=== PATIENT | female | born 1945 | race Caucasian/White ===

== ENCOUNTER 2022-05-28 13:21 | Outpatient (CLI) | payer MEDICARE, SELFPAY ==
--- OUTSIDE RECORDS SUMMARY | 2022-05-28 08:38 | XMS_ITS | Encounter Summary ---
:1945 Author Organization [place] Address [address] [place] [address] Care Team Providers Name Role Phone Amari Torres MD Unavailable [phone] Amari Torres MD Primary Care Provider [phone] Reason for Referral Diagnostic Imaging Mammo (Routine) - Pending Review Specialty Diagnoses / Procedures Referred By Contact Refer red To Contact Diagnoses Visit for screening mammogram Amari Torres, Procedures MA Screen Bilateral w/Luis [facility] [address] [place] [address] Fax: Referral ID Status Reason Start Date Expiration Date Visits V isits Requested Authorized [id number] Pending 04/25/2022 04/25/2023 1 1 Review Reason for Visit Diagnostic Imaging Mammo (Routine) - Pending Review Specialty Diagnoses / Procedures Referred By Contact Refer hue To Contact Diagnoses Visit for screening mammogram Amari Torres Procedures MA Screen Bilateral w/Luis [facility]ASCENC[facility] ENTER [address] [place] [address] Fax: Referral ID Status Reason Start Date Expiration Date Visits V isits Requested Authorized [id number] Pending 04/25/2022 04/25/2023 1 1 Review Encounter Details Date Type Department Care Team Description 05/15/2022 Hospital Encounter [facility] Amari Torres Visit for screening [facility] [address], [address] [place] [address] [id number] Social History Tobacco Use Types Packs/Day Years Used Date Smoking Tobacco: Never Assessed Sex Assigned at Date Recorded Female 04/25/2022 3:34 PM CDT COVID-19 Exposure Response Date Recorded In the last 10 days, have you been in contact with No / Unsu re 05/15/2022 11:30 AM CDT someone who was confirmed or suspected to have Coronavirus/COVID-19? documented as of this encounter Plan of Treatment Not on filedocumented as of this encounter Procedures Procedure Name Priority Date/Time Associated Diagnosis Comme nts MA SCREENING Routine 05/15/2022 11:57 AM Visit for screening R esults for this BILATERAL W/ LUIS CDT mammogram procedure are in the results section. documented in this encounter Results MA Screen Bilateral w/Luis (05/15/2022 11:57 AM CDT) Anatomical Region Laterality Modality Breast Bilateral Mammography Specimen (Source) Anatomical Location Collection Method / Collectio n Time Received Time / Laterality Volume Impressions 05/16/2022 8:39 AM CDT IMPRESSION: ACR BI-RADS Category 1: Negative RECOMMENDED FOLLOW-UP: Annual routine sc reening mammogram The results and recommendations of this examination will be communicated to the patient. William Guerrero Narrative 05/16/2022 8:39 AM CDT BILATERAL FULL FIELD DIGITAL SCREENING MAMMOGRAM WITH TOMOSYNTHESIS Performed on: 05/15/22 Compared to: 05/08/2021, 04/12/2020, , and 03/24/2018 Technique: ??This study was evaluated wi th the assistance of Computer-Aided Detection. ??Breast Tomosynthesis was us ed in interpretation. Findings: The breasts have scattered are as of fibroglandular density. ?? There is no radiographic evidence of mal ignancy. Amari Torres MD IMG MAMMOGRAPHY ORDERABLES documented in this encounter Visit Diagnoses Diagnosis Visit for screening mammogram Other screening mammogram documented in this encounter Care Teams Sound Technician Supervisor Relationship Specialty Start Date End Date Amari Torres MD PCP - General Emergency Medicine 04/17/21 [facility] [address] [place] [address] Amari Torres MD MD Internal Medicine 01/12/15 [facility] [address] [place] [address] documented as of this encounter
--- OUTSIDE RECORDS SUMMARY | 2022-05-28 08:38 | XMS_ITS | Encounter Summary ---
:1945 Author Organization [place] Address [address] [place] [address] Care Team Providers Name Role Phone Amari Torres MD Unavailable [phone] Amari Torres MD Primary Care Provider [phone] Encounter Details Date Type Department Care Team Description 05/15/2022 Travel Social History Tobacco Use Types Packs/Day Years [...] Not on filedocumented as of this encounter Visit Diagnoses Not on filedocumented in this encounter Care Teams Slab Lifting Engineer Relationship Specialty Start Date End Date Amari Torres MD PCP - General Emergency Medicine 04/17/21 [facility] [address] [place] [address] Amari Torres MD MD Internal Medicine 01/12/15 [facility] [address] [place] [address] documented as of this encounter
--- OUTSIDE RECORDS SUMMARY | 2022-05-28 08:38 | XMS_ITS | Encounter Summary ---
:1945 Author Organization [place] Address [address] [place] [address] Care Team Providers Name Role Phone Amari Torres MD Unavailable [phone] Amari Torres MD Primary Care Provider [phone] Encounter Details Date Type Department Care Team Description 05/08/2022 Travel Social History Tobacco Use Types Packs/Day Years Used Date Smoking Tobacco: Never Assessed Sex Assigned at Date Recorded Female 04/25/2022 3:34 PM CDT documented as of this encounter Plan of Treatment Not on filedocumented as of this encounter Visit Diagnoses Not on filedocumented in this encounter Care Teams Professional System Administrator Relationship Specialty Start Date End Date Amari Torres MD PCP - General Emergency Medicine 04/17/21 [facility] [address] [place] [address] Amari Torres MD MD Internal Medicine 01/12/15 [facility] [address] [place] [address] documented as of this encounter
--- OUTSIDE RECORDS SUMMARY | 2022-05-28 08:38 | XMS_ITS | Clinical Summary ---
:1945 Author Organization [facility] Address [place] [address] Care Team Providers Name Role Phone Amari Torres MD Primary Care Provider Allergies Active Allergy Reactions Severity Noted Date Comments Cephalexin Rash Medium 01/10/2022 Medications No known medications Active Problems Not on file Social History Tobacco Use Types Packs/Day Years Used Date Never Assessed Sex Assigned at Date Recorded Not on file Last Filed Vital Signs Vital Sign Reading Time Taken Comments Blood Pressure 104/64 01/10/2022 10:56 AM CDT Pulse 86 01/10/2022 10:56 AM CDT Temperature - - Respiratory Rate - - Oxygen Saturation 95% 01/10/2022 10:56 AM CDT Inhaled Oxygen Concentration - - Weight 70.8 kg (156 lb) 01/10/2022 10:56 AM CDT Height - - Body Mass Index - - Plan of Treatment Health Maintenance Due Date Last Done Comments Tdap 1957 Depression screening for age 12+ 1958 BMI (ht and wt on same day) for age 18+ 02/22/1964 Hepatitis C screening for age 18-79 02/22/1964 Tetanus booster 1966 Zoster (shingles) series for age 50+ (1 of 02/22/1996 2) DEXA/DXA scan for age 65+ 2011 Medicare Wellness for age 65+ 2011 Pneumococcal series for age 65+ (1 - PCV) 2011 COVID-19 vaccine series (3 - Booster for 12/30/2021 022, 04/07/2021 Pfizer series) Influenza for age 65+ 03/15/2022 Results Not on filefrom Last 3 Months Insurance Payer Benefit Plan / Subscriber ID Effective Dates Phone Addre ss Type Group [employer] [place] [employer] MEDICARE [id number] 2019-Present [address] [place] [address] Care Teams Doctor Osteopathic Relationship Specialty Start Date End Date Amari Torres MD PCP - General Internal Medicine 01/10/221999 [place] [address]
--- OUTSIDE RECORDS SUMMARY | 2022-05-28 08:38 | XMS_ITS | Encounter Summary ---
:1945 Author Organization [place] Address [address] [place] [address] Care Team Providers Name Role Phone Amari Torres MD Unavailable [phone] Amari Torres MD Primary Care Provider Reason for Referral Diagnostic Imaging Mammo (Routine) - Closed Specialty Diagnoses / Procedures Referred By Contact Refer red To Contact Diagnoses Visit for screening mammogram Amari Torres Procedures MA Screen Bilateral mitzi/Luis [facility] Ernesto ENTER [address] [place] [address] Fax: Referral ID Status Reason Start Date Expiration Date Visits Requ ested Visits Authorized [id number] Closed 04/06/2021 04/06/2022 1 1 Reason for Visit Diagnostic Imaging Mammo (Routine) - Closed Specialty Diagnoses / Procedures Referred By Contact Refer hue To Contact Diagnoses Visit for screening mammogram Amari Torres Procedures MA Screen Bilateral w/Luis [facility] C ENTER [address] [place] [address] Fax: Referral ID Status Reason Start Date Expiration Date Visits Requ ested Visits Authorized [id number] Closed 04/06/2021 04/06/2022 1 1 Encounter Details Date Type Department Care Team Description 05/08/2021 Hospital Encounter [facility] Amari Torres Visit for screening [facility] [address] [place] [address], [address] [place] [address] [phone] Social History Tobacco Use Types Packs/Day Years Used Date Smoking Tobacco: Never Assessed Sex Assigned at Date Recorded Female 04/25/2022 3:34 PM CDT COVID-19 Exposure Response Date Recorded In the last month, have you been in contact with No / Unsure 05/08/2021 10:17 AM CDT someone who was confirmed or suspected to have Coronavirus / COVID-19? documented as of this encounter Plan of Treatment Not on filedocumented as of this encounter Procedures Procedure Name Priority Date/Time Associated Diagnosis Comme nts MA SCREENING Routine 05/08/2021 10:34 AM Visit for screening R esults for this BILATERAL W/ LUIS CDT mammogram procedure are in the results section. documented in this encounter Results MA Screen Bilateral w/Luis (05/08/2021 10:34 AM CDT) Anatomical Region Laterality Modality Breast Bilateral Mammography Specimen (Source) Anatomical Location Collection Method / Collectio n Time Received Time / Laterality Volume Narrative 05/08/2021 11:34 AM CDT BILATERAL FULL FIELD DIGITAL SCREENING MAMMOGRAM WITH TOMOSYNTHESIS Performed on: 05/08/21 Compared to: 04/12/2020, 04/03/2019, 04/2018, and 03/13/2017 Technique: ??This study was evaluated wi th the assistance of Computer-Aided Detection. ??Breast Tomosynthesis was us ed in interpretation. Findings: The breasts have scattered are as of fibroglandular density. ?? There is no radiographic evidence of mal ignancy. IMPRESSION: ACR BI-RADS Category 1: Nega tive RECOMMENDED FOLLOW-UP: Annual routine sc reening mammogram The results and recommendations of this examination will be communicated to the patient. Amari Torres MD IMG MAMMOGRAPHY ORDERABLES documented in this encounter Visit Diagnoses Diagnosis Visit for screening mammogram Other screening mammogram documented in this encounter Care Teams Supervisory Civil Engineer Relationship Specialty Start Date End Date Amari Torres MD PCP - General Emergency Medicine 04/17/21 [facility] [address] [place] [address] Amari Torres MD MD Internal Medicine 01/12/15 [facility] [address] [place] [address] documented as of this encounter
--- OUTSIDE RECORDS SUMMARY | 2022-05-28 08:38 | XMS_ITS | Encounter Summary ---
:1945 Author Organization [place] Address [address] [place] [address] Care Team Providers Name Role Phone Amari Torres MD Unavailable [phone] Amari Torres MD Primary Care Provider [phone] Encounter Details Date Type Department Care Team Description 05/13/2022 Travel Social History Tobacco Use Types Packs/Day Years Used Date Smoking Tobacco: Never Assessed Sex Assigned at Date Recorded Female 04/25/2022 3:34 PM CDT COVID-19 Exposure Response Date Recorded In the last 10 days, have you been in contact with No / Unsu re 05/13/2022 7:51 PM CDT someone who was confirmed or suspected to have Coronavirus/COVID-19? documented as of this encounter Plan of Treatment Not on filedocumented as of this encounter Visit Diagnoses Not on filedocumented in this encounter Care Teams Civil Drafting Technician Relationship Specialty Start Date End Date Amari Torres MD PCP - General Emergency Medicine 04/17/21 [facility] [address] [place] [address] Amari Torres MD MD Internal Medicine 01/12/15 [facility] [address] [place] [address] documented as of this encounter
--- OUTSIDE RECORDS SUMMARY | 2022-05-28 08:38 | XMS_ITS | Encounter Summary ---
:1945 Author Organization [place] Address [address] [place] [address] Care Team Providers Name Role Phone Amari Torres MD Unavailable [phone] Ref-Primary, Physician Primary Care Provider [phone] Encounter Details Date Type Department Care Team Description 04/12/2020 Travel Social History Tobacco Use Types Packs/Day Years Used Date Smoking Tobacco: Never Assessed Sex Assigned at Date Recorded Female 04/25/2022 3:34 PM CDT COVID-19 Exposure Response Date Recorded In the last month, have you been in contact with No / Unsure 04/12/2020 12:50 PM CDT someone who was confirmed or suspected to have Coronavirus / COVID-19? documented as of this encounter Plan of Treatment Not on filedocumented as of this encounter Visit Diagnoses Not on filedocumented in this encounter Care Teams Patient Observer Relationship Specialty Start Date End Date No Ref-Primary, Physician PCP - General 03/31/20 04/16/21 Amari Torres MD MD Internal Medicine 01/12/15 [facility] [address] [place] [address] documented as of this encounter
--- OUTSIDE RECORDS SUMMARY | 2022-05-28 08:38 | XMS_ITS | Encounter Summary ---
:1945 Author Organization [place] Address [address] [place] [address] Care Team Providers Name Role Phone Amari Torres MD Unavailable [phone] Amari Torres MD Primary Care Provider [phone] Encounter Details Date Type Department Care Team Description 05/08/2021 Travel Social History Tobacco Use Types Packs/Day [...] on filedocumented in this encounter Care Teams University Intern Relationship Specialty Start Date End Date Amari Torres MD PCP - General Emergency Medicine 04/17/21 [facility] [address] [place] [address] Amari Torres MD MD Internal Medicine 01/12/15 [facility] [address] [place] [address] documented as of this encounter
--- OUTSIDE RECORDS SUMMARY | 2022-05-28 08:38 | XMS_ITS | Clinical Summary ---
:1945 Author Organization [place] Address [address] [place] [address] Care Team Providers Name Role Phone Amari Torres MD Unavailable [phone] Amari Torres MD Primary Care Provider [phone] Encounters Date Type Specialty Care Team Description 05/15/2022 Hospital Encounter Radiology. Amari Torres Visi t for screening MD [facility] 05/15/2022 Travel 05/13/2022 Travel 05/08/2022 Travel from Last 3 Months Social History Tobacco Use Types Packs/Day Years Used Date Smoking Tobacco: Never Assessed Sex Assigned at Date Recorded Female 04/25/2022 3:34 PM CDT COVID-19 Exposure Response Date Recorded In the last 10 days, have you been in contact with No / Unsu re 05/15/2022 11:30 AM CDT someone who was confirmed or suspected to have Coronavirus/COVID-19? Plan of Treatment Health Maintenance Due Date Last Done Comments ADVANCE CARE PLANNING 1945 ANNUAL REVIEW OF HM ORDERS 1945 DEXA 1945 HEPATITIS B IMMUNIZATION 1945 (1 of 3 - 3-dose series) HEPATITIS C SCREENING 02/22/1964 LIPID 1991 FALL RISK ASSESSMENT 2011 MEDICARE ANNUAL WELLNESS 2011 VISIT Pneumococcal Vaccine: 65+ 02/15/2015 02/15/2014 Years (2 - PCV) PHQ-2 (once per calendar 07/15/2021 year) DTAP/TDAP/TD IMMUNIZATION 02/16/2024 02/15/2014 (2 - Td or Tdap) ZOSTER IMMUNIZATION Completed 10/19/2021, 04/29/2021 COVID-19 Vaccine Completed 03/30/2022, 11/04/2021, 04/07/2021 INFLUENZA VACCINE Completed 03/30/2022, 04/15/2021, 04/19/2020, Additional history exists MAMMO SCREENING Discontinued 05/15/2022, 05/08/2021, 04/12/2020, Additional history exists IPV IMMUNIZATION Aged Out No longer eligi ble based on patient 's age to complete this topic MENINGITIS IMMUNIZATION Aged Out No longe r eligible based on patient 's age to complete this topic Procedures Procedure Name Priority Date/Time Associated Diagnosis Comme nts MA SCREENING Routine 05/15/2022 11:57 AM Visit for screening R esults for this BILATERAL W/ LUIS CDT mammogram procedure are in the results section. from Last 3 Months Results MA Screen Bilateral w/Luis (05/15/2022 11:57 [...] ignancy. Amari Torres MD IMG MAMMOGRAPHY ORDERABLES from Last 3 Months Insurance Payer Benefit Plan / Subscriber ID Effective Dates Phone Addre ss Type Group [facility] [id number] 2019-Present [phone] [address] [place] [address] Care Teams Branch Examiner Relationship Specialty Start Date End Date Amari Torres MD PCP - General Emergency Medicine 04/17/21 [facility] [address] [place] [address] Amari Torres MD MD Internal Medicine 01/12/15 [facility] [address] [place] [address]
--- OUTSIDE RECORDS SUMMARY | 2022-05-28 08:38 | XMS_ITS | Encounter Summary ---
:1945 Author Organization [place] Address [address] [place] [address]. [place] [address] Care Team Providers Name Role Phone Faisal Morales MD Primary Care Provider Amari Torres MD Unavailable [phone] Reason for Referral Diagnostic Imaging Mammo (Routine) - Closed Specialty Diagnoses / Procedures Referred By Contact Refer red To Contact Radiology. Diagnoses Other screening mammogram Faisal Morales MD Breast Imaging Procedures MA Screen Bilateral w/Luis [facility] [address] [place] [address] [facility] [place] [address] [place] [address] Referral ID Status Reason Start Date Expiration Date Visits Requ ested Visits Authorized [id number] Closed 03/19/2019 03/18/2020 1 1 Reason for Visit Diagnostic Imaging Mammo (Routine) - Closed Specialty Diagnoses / Procedures Referred By Contact Refer red To Contact Radiology. Diagnoses Other screening mammogram Faisal Morales MD Breast Imaging Procedures MA Screen Bilateral w/Luis [facility] [address] [id number] [facility], [address] [place] [address] [place] [address] Referral ID Status Reason Start Date Expiration Date Visits Requ ested Visits Authorized [id number] Closed 03/19/2019 03/18/2020 1 1 Encounter Details Date Type Department Care Team Description 04/03/2019 Hospital Encounter Faisal Sahni Ot her screening [facility] [address] [facility], [address] [place] [address] [address] [place] [address] Social History Tobacco Use Types Packs/Day Years Used Date Smoking Tobacco: Never Assessed Sex Assigned at Date Recorded Female 04/25/2022 3:34 PM CDT documented as of this encounter Plan of Treatment Not on filedocumented as of this encounter Procedures Procedure Name Priority Date/Time Associated Diagnosis Comme nts MA SCREENING Routine 04/03/2019 10:28 AM Other screening Resul ts for this BILATERAL W/ LUIS CDT mammogram procedure are in the results section. documented in this encounter Results MA Screen Bilateral w/Luis (04/03/2019 10:28 AM CDT) Anatomical Region Laterality Modality Breast Bilateral Mammography Specimen (Source) Anatomical Location Collection Method / Collectio n Time Received Time / Laterality Volume Impressions 04/03/2019 10:31 AM CDT IMPRESSION: BI-RADS CATEGORY: 1 - Negative. RECOMMENDED FOLLOW-UP: Annual Mammograph y. Recommend routine annual screening mammo graphy. Exam results letter mailed to patient. MATTIE KRAMER MD Narrative 04/03/2019 10:31 AM CDT SCREENING MAMMOGRAM, BILATERAL, DIGITAL w/CAD AND TOMOSYNTHESIS - 04/03/2019 10:28 AM. BREAST SYMPTOMS: No current breast compl aints. COMPARISON: ??03/24/2018, 03/13/2017, 2015, 01/18/2015. BREAST DENSITY: Scattered fibroglandular densities. COMMENTS: No findings of suspicion for m alignancy. Procedure Note Mattie Kramer MD - 04/03/2019 SCREENING MAMMOGRAM, BILATERAL, DIGITAL w/CAD AND TOMOSYNTHESIS - 04/03/2019 10:28 AM. BREAST SYMPTOMS: No current breast compl aints. COMPARISON: 03/24/2018, 03/13/2017, 01/20/20 16, 01/18/2015. BREAST DENSITY: Scattered fibroglandular densities. COMMENTS: No findings of suspicion for m alignancy. IMPRESSION: BI-RADS CATEGORY: 1 - Negati ve. RECOMMENDED FOLLOW-UP: Annual Mammograph y. Recommend routine annual screening mammo graphy. Exam results letter mailed to patient. MATTIE KRAMER MD Faisal Morales MD IMG MAMMOGRAPHY ORDERABLES documented in this encounter Visit Diagnoses Diagnosis Other screening mammogram documented in this encounter Care Teams New Car Make Ready Worker Relationship Specialty Start Date End Date Faisal Morales MD PCP - General adventure therapist 01/12/15 03/30/20 [facility] [address] [facility] [address] [place] [address] Amari Torres MD MD Internal Medicine 01/12/15 [facility] [address] [place] [address] documented as of this encounter
--- OUTSIDE RECORDS SUMMARY | 2022-05-28 08:38 | XMS_ITS | Encounter Summary ---
:1945 Author Organization [facility] Address [address] [place] [address]. [place] [address] Care Team Providers Name Role Phone Amari Torres MD Unavailable [phone] No Ref-Primary, Physician Primary Care Provider [phone] Reason for Referral Diagnostic Imaging Mammo (Routine) - Closed Specialty Diagnoses / Procedures Referred By Contact Refer red To Contact Diagnoses Screening mammogram, encounter for Faisal Morales MD Procedures MA Screen Bilateral w/Luis [facility] [address] [place] [address] Referral ID Status Reason Start Date Expiration Date Visits Requ ested Visits Authorized [id number] Closed 03/30/2020 03/30/2021 1 1 Reason for Visit Diagnostic Imaging Mammo (Routine) - Closed Specialty Diagnoses / Procedures Referred By Contact Refer red To Contact Diagnoses Screening mammogram, encounter for Faisal Morales MD Procedures MA Screen Bilateral w/Luis [facility] [address] [place] [address] Referral ID Status Reason Start Date Expiration Date Visits Requ ested Visits Authorized [id number] Closed 03/30/2020 03/30/2021 1 1 Encounter Details Date Type Department Care Team Description 04/12/2020 Hospital Encounter [facility] Faisal Morales mammogram, [facility] Breast MD Tawny encounter for Center [facility] [address] [facility], [address] [place] [address] [address] [place] [phone] Social History Tobacco Use Types Packs/Day Years [...] Associated Diagnosis Comme nts MA SCREENING Routine 04/12/2020 1:10 PM Screening mammogram, R esults for this BILATERAL W/ LUIS CDT encounter for procedure are in the results section. documented in this encounter Results MA Screen Bilateral w/Luis (04/12/2020 1:10 PM CDT) Anatomical Region Laterality Modality Breast Bilateral Mammography Specimen (Source) Anatomical Location Collection Method / Collectio n Time Received Time / Laterality Volume Impressions 04/12/2020 3:14 PM CDT IMPRESSION: BI-RADS CATEGORY: 1 - Negative. RECOMMENDED FOLLOW-UP: Annual Mammograph y. Recommend routine annual screening mammo graphy. Exam results letter mailed to patient. MATTIE KRAMER MD Narrative 04/12/2020 3:14 PM CDT SCREENING MAMMOGRAM, BILATERAL, DIGITAL w/CAD AND TOMOSYNTHESIS - 04/12/2020 1:10 PM. BREAST SYMPTOMS: No current breast compl aints. COMPARISON: ??04/03/2019, 03/24/2018, 03/13, 01/20/2016. BREAST DENSITY: Scattered fibroglandular densities. COMMENTS: No findings of suspicion for m alignancy. Procedure Note Mattie Kramer MD - 04/12/2020 SCREENING MAMMOGRAM, BILATERAL, DIGITAL w/CAD AND TOMOSYNTHESIS - 04/12/2020 1:10 PM. BREAST SYMPTOMS: No current breast compl aints. COMPARISON: 04/03/2019, 03/24/2018, 017, 01/20/2016. BREAST DENSITY: Scattered fibroglandular densities. COMMENTS: No findings of suspicion for m alignancy. IMPRESSION: BI-RADS CATEGORY: 1 - Negati ve. RECOMMENDED FOLLOW-UP: Annual Mammograph y. Recommend routine annual screening mammo graphy. Exam results letter mailed to patient. MATTIE KRAMER MD Faisal Morales MD IMG MAMMOGRAPHY ORDERABLES documented in this encounter Visit Diagnoses Diagnosis Screening mammogram, encounter for documented in this encounter Care Teams Library Services Assistant Relationship Specialty Start Date End Date No Ref-Primary, Physician PCP - General 03/31/20 04/16/21 Amari Torres MD MD Internal Medicine 01/12/15 [facility] [address] [place] [address] documented as of this encounter
--- OUTSIDE RECORDS SUMMARY | 2022-05-28 08:39 | XMS_ITS | Encounter Summary ---
:1945 Author Organization [facility] Address [address] [place] [id number] Care Team Providers Name Role Phone Clinic, [facility] Primary Care Provider [phone] Reason for Visit (Routine) - Closed Specialty Diagnoses / Procedures Referred By Contact Refer red To Contact Radiology Diagnoses US BREAST UNILATERAL RIGHT Procedure Notes: Abnormal mammogram, unspecified, Sh Breast Imaging Procedures RADIOLOGY [address] [facility], [address] [place] [address] Phone: Referral ID Status Reason Start Date Expiration Date Visits Requ ested Visits Authorized [id number] Closed 12/17/2012 12/17/2013 1 1 Encounter Details Date Type Department Care Team Description 12/19/2012 Hospital Encounter [facility] Luis Grimm bnormal mammogram Betty Blevins MD [place] [facility] XXX [address] [facility] [place] [address] [facility] [address] [place], [place] (Work) [phone] Social History Tobacco Use Types Packs/Day Years Used Date Smoking Tobacco: Never Assessed Sex Assigned at Date Recorded Female 04/25/2022 3:34 PM CDT documented as of this encounter Plan of Treatment Not on filedocumented as of this encounter Procedures Procedure Name Priority Date/Time Associated Diagnosis Comme nts US BREAST RIGHT Routine 12/19/2012 2:06 PM Abnormal mammogram Results for this LIMITED 1-3 CDT procedure are i n QUADRANTS the results section. documented in this encounter Results US Breast Right (12/19/2012 2:06 PM CDT) Anatomical Region Laterality Modality Breast Right Mammography Specimen (Source) Anatomical Collection Method Collection Time Re ceived Time Location / / Volume Laterality 12/19/2012 2:06 PM CDT Impressions 12/19/2012 2:14 PM CDT IMPRESSION: BI-RADS 3, PROBABLY BENIGN, right. A tiny 0.3 cm nodule deep in the medial right breast with no sonographic correlate. RECOMMENDATION: Six-month followup right diagnostic mammogram and ultrasound. And, if she develops a lump in the medial right breast or anywhere in either breast she should be seen before 6 months. ISABELLE MCGEE MD Narrative 12/19/2012 2:14 PM CDT DIAGNOSTIC MAMMOGRAM, RIGHT BREAST, DIGI RASHAWN w/CAD; ULTRASOUND, RIGHT - December 19, 2012 REASON FOR EXAMS: Referred for additiona l evaluation of a tiny nodular density seen deep in the medial right breast on [facility] screening mammogram. She has no clinical symptoms. COMPARISON: ??Recent screening mammogram dated 12/16/2012 and prior screening mammograms from 2011 and 2006. FINDINGS: Additional right mammographic views today again show a barely perceptible, tiny 0.3 cm nodule p rojecting deep in the medial right breast at 3:00 about 8 cm from the nipple, posterior breast depth. Not definitely evident on the and 2006 mammograms. Careful sonographic evaluation of the me dial right breast, and I personally scanned the patient, shows no correlative sonographic finding. This tiny nodule is of uncertai n significance at this point but it is so small that stereotactic bio psy will be very difficult and there is no sonographic correlate. F or these reasons, I recommend surveillance with short-term followup ri t diagnostic mammography and ultrasound in 6 months. And, if she develops a lump in that area or anywhere else in either breast she sh ould be seen before 6 months. I discussed these findings and recommend ations with her. Procedure Note Isabelle Mcgee MD - 12/19/2012Forma tting of this note might be different from the original. DIAGNOSTIC MAMMOGRAM, RIGHT BREAST, DIGI RASHAWN w/CAD; ULTRASOUND, RIGHT - December 19, 2012 REASON FOR EXAMS: Referred for additiona l evaluation of a tiny nodular density seen deep in the medial right breast on [facility] screening mammogram. She has no clinical symptoms. COMPARISON: Recent screening mammogram d ated 12/16/2012 and prior screening mammograms from 2011 and 2006. FINDINGS: Additional right mammographic views today again show a barely perceptible, tiny 0.3 cm nodule p rojecting deep in the medial right breast at 3:00 about 8 cm from the nipple, posterior breast depth. Not definitely evident on the 201 and 2006 mammograms. Careful sonographic evaluation of the me dial right breast, and I personally scanned the patient, shows no correlative sonographic finding. This tiny nodule is of uncertai n significance at this point but it is so small that stereotactic bio psy will be very difficult and there is no sonographic correlate. F or these reasons, I recommend surveillance with short-term followup ri t diagnostic mammography and ultrasound in 6 months. And, if she develops a lump in that area or anywhere else in either breast she sh ould be seen before 6 months. I discussed these findings and recommend ations with her. IMPRESSION IMPRESSION: BI-RADS 3, PROBABLY BENIGN, right. A tiny 0.3 cm nodule deep in the medial right breast with no sonographic correlate. RECOMMENDATION: Six-month followup right diagnostic mammogram and ultrasound. And, if she develops a lump in the medial right breast or anywhere in either breast she should be seen before 6 months. ISABELLE MCGEE MD Luis Grimm MD IMG US ORDERABLES documented in this encounter Visit Diagnoses Diagnosis Abnormal mammogram Abnormal mammogram, unspecified documented in this encounter Care Teams Resume Writer Relationship Specialty Start Date End Date [facility], [facility] PCP - General 12/17/12 06/23/[address] [address] documented as of this encounter
--- OUTSIDE RECORDS SUMMARY | 2022-05-28 08:39 | XMS_ITS | Encounter Summary ---
:1945 Author Organization [facility] Address [address] [place], [place] [address]. [place] [address] Care Team Providers Name Role Phone DoctorMckenzie MD Primary Care Provider Unavailable Reason for Visit (Routine) - Closed Specialty Diagnoses / Procedures Referred By Contact Refer red To Contact Radiology / Radiology. Diagnoses Prev [facility]BC KR gave parking info Sh Breast Imaging Procedures US BREAST RIGHT [address] [facility], [address] [place] [address] Phone: Referral ID Status Reason Start Date Expiration Date Visits Requ ested Visits Authorized [id number] Closed 01/04/2014 07/03/2014 1 1 Encounter Details Date Type Department Care Team Description 01/04/2014 Hospital Encounter [facility] Faisal Morales, Breast asymmetry [facility] Breast MD Center HOME ADVISOR [address] [facility], [address] [facility] [address] [place] [phone] [address] [place] [phone] Social History Tobacco Use Types Packs/Day Years Used Date Smoking Tobacco: Never Assessed Sex Assigned at Date Recorded Female 04/25/2022 3:34 PM CDT documented as of this encounter Plan of Treatment Not on filedocumented as of this encounter Visit Diagnoses Diagnosis Breast asymmetry Other specified disorders of breast documented in this encounter Care Teams Building Illuminating Engineer Relationship Specialty Start Date End Date Mckenzie iJn MD PCP - General 06/24/13 01/11/15 documented as of this encounter
--- OUTSIDE RECORDS SUMMARY | 2022-05-28 08:39 | XMS_ITS | Encounter Summary ---
:1945 Author Organization [facility] Address [address] [place] [address]. [place] [address] Care Team Providers Name Role Phone Faisal Morales MD Primary Care Provider Amari Torres MD Unavailable [phone] Reason for Visit (Routine) - Closed Specialty Diagnoses / Procedures Referred By Contact Refer red To Contact Radiology / Radiology. Diagnoses prev fvsd alan informed Sh Breast Imaging Procedures MA SCREENING DIGITAL BILATERAL [address] [facility], [address] [place] [address] Phone: Referral ID Status Reason Start Date Expiration Date Visits Requ ested Visits Authorized [id number] Closed 01/17/2016 01/16/2017 1 1 Encounter Details Date Type Department Care Team Description 01/20/2016 Hospital Encounter [facility] Faisal Morales En counter for Betty Hector MD screening mammogram [facility] for breast cancer [address] [facility], [address] [facility] [place] [address] [address] [facility] [address] [place] [phone] Social History Tobacco Use Types Packs/Day Years Used Date Smoking Tobacco: Never Assessed Sex Assigned at Date Recorded Female 04/25/2022 3:34 PM CDT documented as of this encounter Plan of Treatment Not on filedocumented as of this encounter Procedures Procedure Name Priority Date/Time Associated Diagnosis Comme nts MA SCREENING Routine 01/20/2016 11:37 AM Encounter for Results for this BILATERAL W/ ALAN CDT screening mammogram pro cedure are in for breast cancer the result s section. documented in this encounter Results MA Screen Bilateral w/Alan (01/20/2016 11:37 AM CDT) Anatomical Region Laterality Modality Breast Bilateral Mammography Specimen (Source) Anatomical Location Collection Method / Collectio n Time Received Time / Laterality Volume Impressions 01/20/2016 3:02 PM CDT IMPRESSION: BI-RADS CATEGORY: 1 - ??Negative RECOMMENDED FOLLOW-UP: Annual Mammograph y. Exam results letter mailed to patient. ?? LAST CASTELLANOS MD Narrative 01/20/2016 3:02 PM CDT SCREENING MAMMOGRAM, BILATERAL, DIGITAL w/CAD AND TOMOSYNTHESIS - 01/20/2016 11:37 AM BREAST SYMPTOMS: No current breast compl aints. COMPARISON: ??01/18/2015, 01/04/2014, , 12/11/2011. BREAST DENSITY: Scattered fibroglandular densities. COMMENTS: No findings of suspicion for m alignancy. ? Procedure Note Last Castellanos MD - 01/20/2016For matting of this note might be different from the original. SCREENING MAMMOGRAM, BILATERAL, DIGITAL w/CAD AND TOMOSYNTHESIS - 01/20/2016 11:37 AM BREAST SYMPTOMS: No current breast compl aints. COMPARISON: 01/18/2015, 01/04/2014, 10/2012, 12/11/2011. BREAST DENSITY: Scattered fibroglandular densities. COMMENTS: No findings of suspicion for m alignancy. IMPRESSION: BI-RADS CATEGORY: 1 - Negati ve RECOMMENDED FOLLOW-UP: Annual Mammograph y. Exam results letter mailed to patient. LAST CASTELLANOS MD Faisal Morales MD IMG MAMMOGRAPHY ORDERABLES documented in this encounter Visit Diagnoses Diagnosis Encounter for screening mammogram for br east cancer documented in this encounter Care Teams Farmer And Grazier Relationship Specialty Start Date End Date Faisal Morales MD PCP - General state farm agent 01/12/15 03/30/20 [facility] [address] [place] [phone] Amari Torres MD MD Internal Medicine 01/12/15 [facility] [address] [place] [address] documented as of this encounter
--- OUTSIDE RECORDS SUMMARY | 2022-05-28 08:39 | XMS_ITS | Encounter Summary ---
:1945 Author Organization [facility] Address [address] [place] [address]. [place] [address] Care Team Providers Name Role Phone Doctor, None MD Primary Care Provider Unavailable Reason for Visit (Routine) - Closed Specialty Diagnoses / Procedures Referred By Contact Refer red To Contact Radiology / Radiology. Diagnoses Prev FSBC KR gave parking info Sh Breast Imaging Procedures MA DIAGNOSTIC DIGITAL BILAT [address] [facility], [address] [place] [address] Phone: Referral ID Status Reason Start Date Expiration Date Visits Requ ested Visits Authorized [id number] Closed 01/04/2014 07/03/2014 1 1 Encounter Details Date Type Department Care Team Description 01/04/[address] [facility] Faisal Morales, Breast asymmetry [facility] Breast MD Center INSPECTOR AND HAND PACKAGER [address] [facility], [address] [facility] [place] [phone] [address] [place] [address] Social History Tobacco Use Types Packs/Day Years Used Date Smoking Tobacco: Never Assessed Sex Assigned at Date Recorded Female 04/25/2022 3:34 PM CDT documented as of this encounter Plan of Treatment Not on filedocumented as of this encounter Procedures Procedure Name Priority Date/Time Associated Comments Diagnosis MA DIAGNOSTIC Routine 01/04/2014 9:00 AM Breast asymmetry Resu lts for this DIGITAL BILATERAL CDT procedure are in the results section. documented in this encounter Results MA Diagnostic Digital Bilateral (01/04/2014 9:00 AM CDT) Anatomical Region Laterality Modality Breast Bilateral Mammography Specimen (Source) Anatomical Location Collection Method / Collectio n Time Received Time / Laterality Volume Impressions 01/04/2014 1:40 PM CDT IMPRESSION: BI-RADS CATEGORY: 2 - Benign Finding(s). Stable tiny benign nodular asymmetry in the right breast. No evidence of malignancy. Results were communicated to the patient during her appointment. As long as her physical exa mination remains stable, annual screening mammography would be ap propriate. RECOMMENDED FOLLOW-UP: Annual Mammograph lisa DEE MD Narrative 01/04/2014 1:40 PM CDT MA DIAGNOSTIC DIGITAL BILATERAL with CAD - ??01/04/2014 HISTORY: ??Six month followup regarding a small focal asymmetry in the posterior medial right breast. COMPARISON: ??Right diagnostic mammogram s 07/09/2013, 12/19/2012. Screening mammograms 12/16/2012, 12/11/2011 . FINDINGS: ??Standard bilateral diagnosti c views were obtained. The tiny asymmetry in the posteromedial right bertha ast is stable. The pattern of scattered fibroglandular densities in adalid th breasts is also unchanged. There is no new or suspicious finding to suggest malignancy. Faisal Morales MD IMG MAMMOGRAPHY ORDERABLES documented in this encounter Visit Diagnoses Diagnosis Breast asymmetry Other specified disorders of breast documented in this encounter Care Teams Tape Transferrer Relationship Specialty Start Date End Date Doctor, None, PCP - General 06/24/13 01/11/15 documented as of this encounter
--- OUTSIDE RECORDS SUMMARY | 2022-05-28 08:39 | XMS_ITS | Encounter Summary ---
:1945 Author Organization [facility] Address [address] [place] [address]. [place] [address] Care Team Providers Name Role Phone Faisal Morales MD Primary Care Provider Amari Torres MD Unavailable [phone] Reason for Visit (Routine) - Closed Specialty Diagnoses / Procedures Referred By Contact Refer red To Contact Radiology / Radiology. Diagnoses EPIC ORDER sb pt Sh Breast Imaging Procedures MA SCREENING BILATERAL W/ ALAN [address] [facility], [address] [place] [address] Phone: Referral ID Status Reason Start Date Expiration Date Visits Requ ested Visits Authorized [id number] Closed 02/15/2017 02/15/2018 1 1 Encounter Details Date Type Department Care Team Description 03/13/2017 Hospital Encounter [facility] Faisal Morales sit for screening Betty Hector MD mammogram [facility] [address] [facility], [address] [place] [phone] [address] [place] [phone] Social History Tobacco Use Types Packs/Day Years Used Date Smoking Tobacco: Never Assessed Sex Assigned at Date Recorded Female 04/25/2022 3:34 PM CDT documented as of this encounter Plan of Treatment Not on filedocumented as of this encounter Procedures Procedure Name Priority Date/Time Associated Diagnosis Comme nts MA SCREENING Routine 03/13/2017 10:42 AM Visit for screening R esults for this BILATERAL W/ ALAN CDT mammogram procedure are in the results section. documented in this encounter Results MA Screen Bilateral w/Alan (03/13/2017 10:42 AM CDT) Anatomical Region Laterality Modality Breast Bilateral Mammography Specimen (Source) Anatomical Location Collection Method / Collectio n Time Received Time / Laterality Volume Impressions 03/13/2017 11:14 AM CDT IMPRESSION: BI-RADS CATEGORY: 1 - Negative. RECOMMENDED FOLLOW-UP: Annual Mammograph y. Recommend routine annual screening mammo graphy. Exam results letter mailed to patient. MATTIE KRAMER MD Narrative 03/13/2017 11:14 AM CDT SCREENING MAMMOGRAM, BILATERAL, DIGITAL w/CAD AND TOMOSYNTHESIS - 03/13/2017 10:42 AM. BREAST SYMPTOMS: No current breast compl aints. COMPARISON: ??01/20/2016, 01/18/2015, , 07/09/2013. BREAST DENSITY: Scattered fibroglandular densities. COMMENTS: No findings of suspicion for m alignancy. Procedure Note Mattie Kramer MD - 03/13/2017 SCREENING MAMMOGRAM, BILATERAL, DIGITAL w/CAD AND TOMOSYNTHESIS - 03/13/2017 10:42 AM. BREAST SYMPTOMS: No current breast compl aints. COMPARISON: 01/20/2016, 01/18/2015, 12/14, 07/09/2013. BREAST DENSITY: Scattered fibroglandular densities. COMMENTS: No [...] mammogram documented in this encounter Care Teams Window Cutter Relationship Specialty Start Date End Date Faisal Morales MD PCP - General discharge planner 01/12/15 03/30/[address] [facility] [address] [place] [phone] Amari Torres MD MD Internal Medicine 01/12/15 [facility] [address] [place] [address] documented as of this encounter
--- OUTSIDE RECORDS SUMMARY | 2022-05-28 08:39 | XMS_ITS | Encounter Summary ---
:1945 Author Organization [facility] Address [address] [place] [address]. [place] [address] Care Team Providers Name Role Phone Doctor, None MD Primary Care Provider Unavailable Reason for Visit (Routine) - Closed Specialty Diagnoses / Procedures Referred By Contact Refer red To Contact Radiology / Radiology. Diagnoses Prev FSBC Sh Breast Imaging Procedures MA DIAGNOSTIC DIGITAL RIGHT [address] [facility], [address] [place] [address] Phone: Referral ID Status Reason Start Date Expiration Date Visits Requ ested Visits Authorized [id number] Closed 06/23/2013 06/23/2014 1 1 Encounter Details Date Type Department Care Team Description 07/09/2013 Hospital Encounter [facility] Luis Grimm , Breast density [facility] Breast MD Center XXX XXX [address] [place] [address] [facility], [address] [place] [address] [phone] Social History Tobacco Use Types Packs/Day Years Used Date Smoking Tobacco: Never Assessed Sex Assigned at Date Recorded Female 04/25/2022 3:34 PM CDT documented as of this encounter Plan of Treatment Not on filedocumented as of this encounter Procedures Procedure Name Priority Date/Time Associated Comments Diagnosis MA DIAGNOSTIC Routine 07/09/2013 9:04 AM Breast density Result s for this DIGITAL RIGHT YIELD IMPROVEMENT ENGINEER procedure are in the results section. documented in this encounter Results MA Diagnostic Digital Right (07/09/2013 9:04 AM YIELD IMPROVEMENT ENGINEER) Anatomical Region Laterality Modality Breast Right Mammography Specimen (Source) Anatomical Location Collection Method / Collectio n Time Received Time / Laterality Volume Impressions 07/09/2013 9:27 AM YIELD IMPROVEMENT ENGINEER IMPRESSION: BI-RADS CATEGORY: 3 - Probably Benign Finding-Short Interval Follow-Up Suggested. Stable tiny mammographic asymmetry. Cent ral lucency seen on the cc view suggests a benign intramammary lymp h node. Continued close interval followup is recommended with a bilateral diagnostic mammogram in 6 months. Results and recommendation were communicated to the patient at the conclusion of her appoint ment. RECOMMENDED FOLLOW-UP: Short Interval Fo llow-up 6 Months. LAST CASTELLANOS MD Narrative 07/09/2013 9:27 AM YIELD IMPROVEMENT ENGINEER MA DIAGNOSTIC DIGITAL RIGHT with CAD - July 09, 2013 HISTORY: ??Six month followup for a tiny mammographic asymmetry in the lower inner quadrant of the right breast . COMPARISON: Screening mammogram 12/16/2012 . Diagnostic right mammogram 12/19/2012. FINDINGS: ??Diagnostic views of the righ t breast were obtained. The tiny nodular asymmetry in the posterior lower inner quadrant is stable. Scattered fibroglandular densiti es elsewhere in the right breast are similarly unchanged. Procedure Note Last Castellanos MD - 07/09/2013For matting of this note might be different from the original. MA DIAGNOSTIC DIGITAL RIGHT with CAD - D ec2012 HISTORY: Six month followup for a tiny m ammographic asymmetry in the lower inner quadrant of the right breast . COMPARISON: Screening mammogram 12/16/2012 . Diagnostic right mammogram 12/19/2012. FINDINGS: Diagnostic views of the right breast were obtained. The tiny nodular asymmetry in the posterior lower inner quadrant is stable. Scattered fibroglandular densiti es elsewhere in the right breast are similarly unchanged. IMPRESSION IMPRESSION: BI-RADS CATEGORY: 3 - Probab ly Benign Finding-Short Interval Follow-Up Suggested. Stable tiny mammographic asymmetry. Cent ral lucency seen on the cc view suggests a benign intramammary lymp h node. Continued close interval followup is recommended with a bilateral diagnostic mammogram in 6 months. Results and recommendation were communicated to the patient at the conclusion of her appoint ment. RECOMMENDED FOLLOW-UP: Short Interval Fo llow-up 6 Months. LAST CASTELLANOS MD Luis Grimm MD IMG MAMMOGRAPHY ORDERABLES documented in this encounter Visit Diagnoses Diagnosis Breast density Other sign and symptom in breast documented in this encounter Care Teams Director Of Instrumental Music Relationship Specialty Start Date End Date Mckenzie Jin MD PCP - General 06/24/13 01/11/15 documented as of this encounter
--- OUTSIDE RECORDS SUMMARY | 2022-05-28 08:39 | XMS_ITS | Encounter Summary ---
:1945 Author Organization [facility] Address [address] [place] [address]. [place] [address] Care Team Providers Name Role Phone DoctorMckenzie MD Primary Care Provider Unavailable Reason for Visit (Routine) - Closed Specialty Diagnoses / Procedures Referred By Contact Refer red To Contact Radiology / Radiology. Diagnoses Prev FSBC Sh Breast Imaging Procedures US BREAST RIGHT [address] [facility], [address] [place] [address] Phone: Referral ID Status Reason Start Date Expiration Date Visits Requ ested Visits Authorized [id number] Closed 07/09/2013 01/05/2014 1 1 Encounter Details Date Type Department Care Team Description 07/09/[address] [facility] Luis Grimm , Breast density [facility] Breast MD Export XXX XXX [address] [place] [address] [facility] [address] [place] [address] [phone] Social History Tobacco Use Types Packs/Day Years Used Date Smoking Tobacco: Never Assessed Sex Assigned at Date Recorded Female 04/25/2022 3:34 PM CDT documented as of this encounter Plan of Treatment Not on filedocumented as of this encounter Visit Diagnoses Diagnosis Breast density Other sign and symptom in breast documented in this encounter Care Teams Coating Machine Operator Helper Relationship Specialty Start Date End Date Mckenzie Jin MD PCP - General 06/24/13 01/11/15 documented as of this encounter
--- OUTSIDE RECORDS SUMMARY | 2022-05-28 08:39 | XMS_ITS | Encounter Summary ---
:1945 Author Organization [facility] Address [address] [place] [address] Care Team Providers Name Role Phone Avery Fitzgerald Primary Care Provider [phone] Encounter Details Date Type Department Care Team Description 12/17/2012 Orders Only [facility] Mahesh Willa Abnormal m ammogram [facility] Breast [address] (Primary Dx) [address] [facility], [address] [place] [address] Social History Tobacco Use Types Packs/Day Years Used Date Smoking Tobacco: Never Assessed Sex Assigned at Date Recorded Female 04/25/2022 3:34 PM CDT documented as of this encounter Plan of Treatment Not on filedocumented as of this encounter Visit Diagnoses Diagnosis Abnormal mammogram - Primary Abnormal mammogram, unspecified documented in this encounter Care Teams Propellant Charge Loader Relationship Specialty Start Date End Date Clinic, Avery Montano PCP - General 12/17/12 06/23/132023 [address] [place] [address] documented as of this encounter
[2022-05-28 12:04] LABS: Albumin* 4.3 g/dL (3.3-5.0)
[2022-05-28 12:05] LABS: Chloride* 103 mmol/L (96-114); Potassium* 4.1 mmol/L (3.6-5.1); Sodium* 138 mmol/L (135-149)
[2022-05-28 12:07] LABS: Bilirubin Total* 0.9 mg/dL (0.1-1.5); Carbon Dioxide* 27 mmol/L (20-32); Cholesterol* 260 mg/dL (90-199); Creatinine* 0.8 mg/dL (0.5-1.5); Estimated Glomerular Filt Rate 76 ml/min
[2022-05-28 12:08] LABS: Alanine Aminotransferase* 18 U/L (4-35); Alkaline Phosphatase* 67 U/L (40-150); Aspartate Amino Transferase* 29 U/L (12-35); Blood Urea Nitrogen* 17 mg/dL (7-30); Glucose* 90 mg/dL (60-115); Total Protein* 7.2 g/dL (6.0-8.3); Triglycerides* 85 mg/dL (40-149)
[2022-05-28 12:09] LABS: HDL Cholesterol* 73 mg/dL (>=50); LDL Cholesterol Calculated 170 mg/dL (<100)
== END 2022-05-28 13:22 | disposition home or self-care (01) ==
PROVIDERS: PCP Internal Medicine; Visit Provider Internal Medicine
DX: E78.5 Hyperlipidemia, unspecified (principal)
CPT/HCPCS: 80053; 80061

== ENCOUNTER 2022-06-16 07:48 | Observation (INO) | payer MEDICARE, SELFPAY ==
[2022-06-16] VITALS (29 sets, daily range): BP systolic 112–135; BP diastolic 44–72; PULSE 69–105; RESP 14–22; TEMP 36.6–37.2; O2SAT 87–98; BMI 24.0
--- NOTE | 2022-06-16 08:28 | ED.GENADULT ---
HPI - General Adult General Time Seen by Provider: 08:28 Date Seen: 06/16/22 Chief complaint: Cough Stated complaint: Trouble breathing Time Seen by Provider: 06/16/22 08:28 Source: patient, RN notes reviewed and old records reviewed Mode of arrival: ambulatory Limitations: no limitations History of Present Illness HPI narrative: Patient is a 77-year-old female coming in with worsening respiratory symptoms. She was seen on June 14, illness started about 3 days before then. She has been coughing, has had progressive fevers instead of improving. Is feeling more short of breath. Has a very remote history of smoking when she was young, no history of lung disease. She states she is up-to-date on all immunizations including COVID and influenza. In urgent care on June 14 she had negative testing for COVID/influenza/RSV. She has had nausea, diminished appetite. No abdominal pain, no diarrhea, no vomiting. She has had body aches. Initially she had a 2-3 day history of sore throat but that has went away. It is really the body aches, coughing, feeling ill and fevers that are problematic. She states she has never felt this sick before. Related Data Previous Rx's Medication Instructions Recorded benzonatate 200 mg capsule 200 mg PO BID-TID PRN cough #10 06/14/22 caps doxycycline hyclate 100 mg capsule 100 mg PO BID #20 caps 06/16/22 Allergies Allergy/AdvReac Type Severity Reaction Status Date / Time cephalexin Allergy Mild Rash Verified 06/14/22 14:10 Review of Systems Status of ROS: Reports: 10 or more systems reviewed and unremarkable except as noted in History and below [facility] Medical History (Updated 06/16/22 @ 10:38 by Tori Verdugo MD) Hyperlipidemia Osteopenia Screening due Social History Smoking Status: Former smoker Do you use any of these nicotine containing products: None Second hand tobacco smoke exposure: No How often do you have a drink containing alcohol: 2-3 times a week How many standard drinks containing alcohol do you have on a typical day: 1 or 2 How often do you have six or more drinks on one occasion: Never AUDIT-C Alcohol total score: 3 Non-prescribed substance use: denies use Little interest or pleasure in doing things: not at all Feeling down, depressed, or hopeless: not at all service: No Exam Const: Vital Signs, click to edit/add: Vital Signs - 24 hr 06/16/22 08:04 06/16/22 08:39 06/16/22 08:23 Temperature 99 F Pulse Rate [Pulse Oximeter] 105 H 97 96 Respiratory Rate 18 20 Blood Pressure [Ri ght Upper Arm] 129/71 135/59 L Pulse Oximetry 94 95 94 Oxygen Delivery Me thod Room Air Room Air Room Air 06/16/22 08:36 Temperature Pulse Rate [Pulse Oximeter] Respiratory Rate Blood Pressure [Ri t Upper Arm] Pulse Oximetry 92 Oxygen Delivery Me thod Documenting provider has reviewed patient's vital signs: yes Common normals: no apparent distress, average body habitus, oriented x3, no limitations and alert General appearance: cooperative, comfortable, well kempt and well developed Other: Coughing quite a bit, does interrupt her speech pattern. Sounds like a course wetter cough. HENMT: Common normals: normocephalic, head/scalp atraumatic, hearing grossly normal bilaterally, external ears normal, external nose normal, nasal mucous membranes and turbinates normal, moist oral mucous membranes, oropharynx normal, dentition normal and gingiva normal Head and scalp: normocephalic and atraumatic Nose: external nose normal and nasal mucous membranes and turbinates normal External ear: external ears normal Eye: Common normals: PERRL, EOMs intact bilaterally, conjunctivae normal and no scleral icterus Conjunctiva: conjunctiva(e) normal Pupil: PERRL Neck & C-Spine: Common normals: full ROM, no lymphadenopathy, supple, no meningeal signs, no JVD and thyroid normal Thyroid: thyroid normal Chest: Common normals: inspection of chest normal Resp: Common normals: normal respiratory effort, no retractions and no use of accessory muscles Other: Has some coarse lung sounds initially that did clear with a cough. Did question if there is some crackles posteriorly along the left lung field. No wheezing noted. Cardio: Common normals: no JVD, regular rate, regular rhythm, S1 normal heart sound, S2 normal heart sound, no gallops and no clicks Rate: regular rate Rhythm: regular rhythm Heart sounds: S1 normal and S2 normal Other: Soft systolic murmur heard best upper sternal border. Initially did not hear it due to the overlying lung sounds but once they cleared could hear this soft 1-2 systolic murmur. GI: Common normals: Normal to inspection, nondistended, normoactive bowel sounds present, soft to palpation, non-tender, no hepatosplenomegaly and no masses Palpation: soft and no hepatosplenomegaly Neuro: Common normals: oriented x3 Sensorium/orientation: alert Meningeal signs: no meningeal signs Psych: Appearance: well kempt Course Course Hospital Course: Nursing staff did recheck her for influenza/RSV/COVID on arrival. Will monitor on pulse oximetry, get portable chest x-ray and check some baseline lab work. Certainly bacterial pneumonia needs to be considered here. This is obviously a respiratory infection but need to differentiate what else might benefit her. Reevaluation(s) Reevaluation #1: Reviewed with patient that she indeed has pneumonia on her chest x-ray. She should be able to discharge to home for outpatient treatment. We will give her her initial dose of antibiotics IV as we do have an IV. I have ordered doxycycline 100 mg IV. Time: 10:35 Vital Signs Vital signs: Initial Vital Signs Temperature 99 F 06/16/22 08:04 Temperature Source Temporal Artery Scan 06/16/22 08:04 Pulse Rate 105 H 06/16/22 08:04 Pulse Rhythm 06/16/22 08:04 Respiratory Rate 18 06/16/22 08:04 Blood Pressure 129/71 06/16/22 08:04 Blood Pressure Mean 90 06/16/22 08:04 Blood Pressure Position Sitting 06/16/22 08:04 Pulse Oximetry 94 06/16/22 08:04 Oxygen Delivery Method 06/16/22 08:04 Vital Signs Temperature 99 F 06/16/22 08:04 Pulse Rate 105 H 06/16/22 08:04 Respiratory Rate 18 06/16/22 08:04 Blood Pressure 129/71 06/16/22 08:04 Pulse Oximetry 94 06/16/22 08:04 Oxygen Delivery Method 06/16/22 08:04 Temperature 99 F 06/16/22 08:04 Pulse Rate 97 06/16/22 08:39 Respiratory Rate 20 06/16/22 08:39 Blood Pressure 135/59 L 06/16/22 08:23 Pulse Oximetry 95 06/16/22 08:39 Oxygen Delivery Method 06/16/22 08:39 Medical Decision Making Lab Data Lab results reviewed: Yes I reviewed the patient's lab results Labs: Lab Results 06/16/22 06/16/22 06/16/22 Range/Units 08:13 09:00 09:00 WBC 11.20 H (4.50-11.00) K/uL RBC 4.44 (4.00-5.20) m/uL Hgb 14.0 (12.0-16.0) gm/dL Hct 41.8 (33.0-51.0) % MCV 94 (80-100) fL MCH 32 (26-34) pg MCHC 34 (32-36) gm/dL RDW Coeff of June 12.9 (11.5-15.5) % Plt Count 260 (140-440) K/uL Neut % (Auto) 82.9 H (42.0-72.0) % Lymph % (Auto) 6.6 L (20-44) % [place] % (Auto) 9.6 (0.0-11.0) % Eos % (Auto) 0.3 (0.0-7.0) % Baso % (Auto) 0.4 (0.0-3.0) % Neut # (Auto) 9.30 H (1.7-7.0) K/uL Lymph # (Auto) 0.70 L (0.90-2.90) K/uL [place] # (Auto) 1.10 H (0.00-0.90) K/UL Eos # (Auto) 0.00 (0.00-0.50) K/uL Baso # (Auto) 0.00 (0.00-0.30) K/uL Abs Immat Gran (auto) 0.00 (0.00-0.30) K/uL Imm/Tot Granulo (auto) 0.2 % Sodium 138 (135-149) mmol/L Potassium 3.6 (3.6-5.1) mmol/L Chloride 102 (96-114) mmol/L Carbon Dioxide 27 (20-32) mmol/L BUN 16 (7-30) mg/dL Creatinine 0.7 (0.5-1.5) mg/dL Estimated GFR 90 ml/min Glucose 158 H (60-115) mg/dL Calcium 8.9 (8.4-10.6) mg/dL C-Reactive Protein 14.9 H (0.5-1.0) mg/dL SARS-CoV-2 (PCR) Negative SARS-CoV-2 (Negative) Influenza Type A (PCR) Negative PCR FLU A (Negative) Influenza Type B (PCR) Negative PCR FLU B (Negative) RSV (PCR) Negative PCR RSV (Negative) Imaging Data Chest x-ray: Attestation: I have reviewed the pertinent imaging results. My impression: Right lower lobe pneumonia on my preliminary review. Radiologist's impression: Patient: DAMARIS PETERS Facility:?[facility] Patient ID:?[id number] Site Patient ID:?[id number]. Site :?[id number] Study:?XRay Chest PORT CHEST-06/16/2022 10:15:46 AM Ordering Physician:Bharat Valle Final Report: INDICATION: Cough and fever. TECHNIQUE: One view. IMPRESSION: Some hazy airspace opacity at the right lateral base could be pneumonia. Second subtle focus in the right upper lobe over the medial inferior scapular margin suggests multifocal pneumonia. Pulmonary vascularity is normal. Left lung is clear. Dictated by Valentin Worley MD @ 06/16/2022 10:26:36 AM (Electronic Signature) Discharge Plan Discharge Clinical Impression: Community acquired pneumonia Patient Disposition: Home, Self-Care Condition: Stable Instructions: Community Acquired Pneumonia (ED) Additional Instructions: Start oral antibiotics this evening and take as prescribed. Do recommend trying to get up and be mobile for a short duration every hour while awake. This will help increase the aeration and oxygenation within the lungs. Need to schedule a clinic followup in the next week for recheck. If you are not starting to improve on the antibiotics over this next week, feel that your worsening at any point with increased difficulty breathing, shortness of breath, worsening fevers or symptoms, please seek re-evaluation. Activity Level: Activity as Tolerated Discharge Diet: Regular Prescriptions: New doxycycline hyclate 100 mg capsule 100 mg PO BID Qty: 20 0RF No Action benzonatate 200 mg capsule 200 mg PO BID-TID PRN (Reason: cough) Qty: 10 0RF Follow Up/Referrals: Amari Torres MD [Primary Care Provider] - Stand Alone Forms: [employer] Info Instructions
--- NOTE | 2022-06-16 08:36 | CRLHL7_ITS ---
For Patients: As a result of the Century Cures Act, medical imaging exams and procedure reports are released immediately into your electronic medical record. You may view this report before your referring provider. If you have questions, please contact your health care provider. INDICATION: Cough and fever. TECHNIQUE: One view. IMPRESSION: Some hazy airspace opacity at the right lateral base could be pneumonia. Second subtle focus in the right upper lobe over the medial inferior scapular margin suggests multifocal pneumonia. Pulmonary vascularity is normal. Left lung is clear. Dictated by Valentin Worley MD @ 06/16/2022 10:26:36 AM (Electronically Signed)
[2022-06-16 08:57] LABS: PCR FLU A Negative PCR FLU A (Negative); PCR FLU B Negative PCR FLU B (Negative); PCR RSV Negative PCR RSV (Negative)
[2022-06-16 08:58] LABS: SARS PCR* Negative SARS-CoV-2 (Negative)
--- OUTSIDE RECORDS SUMMARY | 2022-06-16 09:02 | XMS_ITS | Encounter Summary ---
:1945 Author Organization [facility] Address [address] [place] [address]. [place] [address] Care Team Providers Name Role Phone DoctorMckenzie MD Primary Care Provider Unavailable Reason for Visit (Routine) - Closed Specialty Diagnoses / Procedures Referred By Contact Refer red To Contact Radiology / Radiology. Diagnoses Prev FSBC Sh Breast Imaging Procedures US BREAST RIGHT [address] [facility], [address] [place] [address] Phone: Referral ID Status Reason Start Date Expiration Date Visits Requ ested Visits Authorized [id number] Closed 07/09/2013 01/05/2014 1 1 Encounter Details Date Type Department Care Team Description 07/09/2013 Hospital Encounter [facility] Luis Grimm , Breast density [facility] Breast MD [place] XXX XXX [address] [place] [address] [facility] [address] [place] [address] [phone] Social History Tobacco Use Types Packs/Day Years Used Date Smoking Tobacco: Never Assessed Sex Assigned at Date Recorded Female 04/25/2022 3:34 PM CDT documented as of this encounter Plan of Treatment Not on filedocumented as of this encounter Visit Diagnoses Diagnosis Breast density Other sign and symptom in breast documented in this encounter Care Teams Children'S Librarian Relationship Specialty Start Date End Date Mckenzie Jin MD PCP - General 06/24/13 01/11/15 documented as of this encounter
--- OUTSIDE RECORDS SUMMARY | 2022-06-16 09:02 | XMS_ITS | Encounter Summary ---
:1945 Author Organization [facility] [facility] Address [address] [place] [address]. [place] [address] Care Team Providers Name Role Phone Faisal Morales MD Primary Care Provider Amari Torres MD Unavailable [phone] Reason for Referral Diagnostic Imaging Mammo - Closed Specialty Diagnoses / Procedures Referred By Contact Refer red To Contact Radiology. Diagnoses Visit for screening mammogram Faisal Morales MD Breast Imaging Procedures MA Screen Bilateral w/Luis [facility] [address] [place] [address] [place], [address] [place] [address] [place] [address] Referral ID Status Reason Start Date Expiration Date Visits Requ ested Visits Authorized [id number] Closed 03/20/2018 03/20/2019 1 1 Reason for Visit Diagnostic Imaging Mammo - Closed Specialty Diagnoses / Procedures Referred By Contact Refer red To Contact Radiology. Diagnoses Visit for screening mammogram Faisal Morales MD Breast Imaging Procedures MA Screen Bilateral w/Luis [facility] [address] [facility] [address] [place], [address] [place] [address] [place] [address] Referral ID Status Reason Start Date Expiration Date Visits Requ ested Visits Authorized [id number] Closed 03/20/2018 03/20/2019 1 1 Encounter Details Date Type Department Care Team Description 03/24/2018 Hospital Encounter [facility] Faisal Pierson Sury sit for screening Betty Hector MD mammogram [facility] [address] [facility], [address] [place] [address] [address] [place] [address] Social History Tobacco Use Types Packs/Day Years Used Date Smoking Tobacco: Never Assessed Sex Assigned at Date Recorded Female 04/25/2022 3:34 PM CDT documented as of this encounter Plan of Treatment Not on filedocumented as of this encounter Procedures Procedure Name Priority Date/Time Associated Diagnosis Comme nts MA SCREENING Routine 03/24/2018 12:14 PM Visit for screening R esults for this BILATERAL W/ LUIS CDT mammogram procedure are in the results section. documented in this encounter Results MA Screen Bilateral w/Luis (03/24/2018 12:14 PM CDT) Anatomical Region Laterality Modality Breast Bilateral Mammography Specimen (Source) Anatomical Location Collection Method / Collectio n Time Received Time / Laterality Volume Impressions 03/24/2018 1:25 PM CDT IMPRESSION: BI-RADS CATEGORY: 1 - ??NEGATIVE. RECOMMENDED FOLLOW-UP: Annual Mammograph y. The patient will be notified of the resu lts. FAISAL LOOMIS MD Narrative 03/24/2018 1:25 PM CDT Examination: Bilateral digital screening mammography with computer aided detection including digital breast tomosynthesis, 03/24/2018 12:14 PM. Comparison: 03/13/2017, 01/20/2016, 5, 01/04/2014 History: No current breast concerns. Sis ter with breast cancer. BREAST DENSITY: Scattered fibroglandular densities. COMMENTS: ??No suspicious finding. Procedure Note Faisal Loomis MD - 03/24/2018 Examination: Bilateral digital screening mammography with computer aided detection including digital breast tomosynthesis, 03/24/2018 12:14 PM. Comparison: 03/13/2017, 01/20/2016, 5, 01/04/2014 History: No current breast concerns. Sis ter with breast cancer. BREAST DENSITY: Scattered fibroglandular densities. COMMENTS: No suspicious finding. IMPRESSION: BI-RADS CATEGORY: 1 - NEGATI VE. RECOMMENDED FOLLOW-UP: Annual Mammograph y. The patient will be notified of the resu lts. FAISAL LOOMIS MD Faisal Morales MD IMG MAMMOGRAPHY ORDERABLES documented in this encounter Visit Diagnoses Diagnosis Visit for screening mammogram Other screening mammogram documented in this encounter Care Teams Oncology Transplant Network Manager Relationship Specialty Start Date End Date Faisal Morales MD PCP - General logistics analytics manager 01/12/15 03/30/20 [facility] [address] [facility] [address] [place] [address] Amari Torres MD MD Internal Medicine 01/12/15 [facility] [address] [place] [address] documented as of this encounter
--- OUTSIDE RECORDS SUMMARY | 2022-06-16 09:02 | XMS_ITS | Encounter Summary ---
:1945 Author Organization [facility] Address [address] [place] [address]. [place] [address] Care Team Providers Name Role Phone Faisal Morales MD Primary Care Provider Amari Torres MD Unavailable [phone] Reason for Visit (Routine) - Closed Specialty Diagnoses / Procedures Referred By Contact Refer red To Contact Radiology / Radiology. Diagnoses EPIC ORDER sb pt Sh Breast Imaging Procedures MA SCREENING BILATERAL W/ ALAN [address] [facility], [address] [place] [address] Phone: Referral ID Status Reason Start Date Expiration Date Visits Requ ested Visits Authorized [id number] Closed 02/15/2017 02/15/2018 1 1 Encounter Details Date Type Department Care Team Description 03/13/[address] [facility] Faisal Morales sit for screening Betty Hector MD mammogram Center PHOTO MACHINE OPERATOR [address] [facility], [address] [place] [address] [address] [place] [phone] Social History Tobacco Use Types Packs/Day Years [...] mammogram documented in this encounter Care Teams Wound/Ostomy Clinical Nurse Specialist Relationship Specialty Start Date End Date Faisal Morales MD PCP - General machine preservative filler 01/12/15 03/30/20 [facility] [address] [place] [address] Amari Torres MD MD Internal Medicine 01/12/15 [facility] [address] [place] [address] documented as of this encounter
--- OUTSIDE RECORDS SUMMARY | 2022-06-16 09:02 | XMS_ITS | Encounter Summary ---
:1945 Author Organization [facility] Address [address] [place] [address] Care Team Providers Name Role Phone Amari Torres MD Unavailable [phone] Amari Torres MD Primary Care Provider Reason for Referral Diagnostic Imaging Mammo (Routine) - Pending Review Specialty Diagnoses / Procedures Referred By Contact Refer red To Contact Diagnoses Visit for screening mammogram Amari Torres, Procedures MA Screen Bilateral w/Luis [facility] Ernesto ENTER [address] [place] [address] Fax: Referral ID Status Reason Start Date Expiration Date Visits V isits Requested Authorized [id number] Pending 04/25/2022 04/25/2023 1 1 Review Reason for Visit Diagnostic Imaging Mammo (Routine) - Pending Review Specialty Diagnoses / Procedures Referred By Contact Refer hue To Contact Diagnoses Visit for screening mammogram Amari Torres Procedures MA Screen Bilateral w/Luis PLASCENCIA [facility] C ENTER [address] [place] [address] Fax: Referral ID Status Reason Start Date Expiration Date Visits V isits Requested Authorized [id number] Pending 04/25/2022 04/25/2023 1 1 Review Encounter Details Date Type Department Care Team Description 05/15/2022 Hospital Encounter [facility] Amari Torres Visit for screening [facility] Breast MD [facility] [address], [address] [place] [address] [id number] Social History Tobacco Use Types Packs/Day Years [...] mammogram documented in this encounter Care Teams Development Executive Relationship Specialty Start Date End Date Amari Torres MD PCP - General Emergency Medicine 04/17/21 [facility] [address] [place] [address] Amari Torres MD MD Internal Medicine 01/12/15 [facility] [address] [place] [address] documented as of this encounter
--- OUTSIDE RECORDS SUMMARY | 2022-06-16 09:02 | XMS_ITS | Clinical Summary ---
:1945 Author Organization [facility] Address [address] [place] [address] Care Team Providers Name Role Phone Amari Torres MD Unavailable [phone] Amari Torres MD Primary Care Provider [phone] Encounters Date Type Specialty Care Team Description 05/15/2022 Hospital Encounter Radiology. Amari Torres Visi t for screening MD [facility] mammogram 05/15/2022 Travel 05/13/2022 Travel 05/08/2022 Travel from Last 3 Months Social History Tobacco Use Types Packs/Day Years Used Date Smoking Tobacco: Never Assessed Sex Assigned at Date Recorded Female 04/25/2022 3:34 PM CDT Plan of Treatment Health Maintenance Due Date Last Done Comments ADVANCE CARE PLANNING 1945 ANNUAL REVIEW OF HM ORDERS 1945 DEXA 1945 HEPATITIS C SCREENING 02/22/1964 LIPID 1991 FALL [...] Effective Dates Phone Addre ss Type Group [facility] [id number] 2019-Present [phone] [address] [place] [address] Care Teams Medical Esthetician Relationship Specialty Start Date End Date Amari Torres MD PCP - General Emergency Medicine 04/17/21 [facility] [address] [place] [address] Amari Torres MD MD Internal Medicine 01/12/15 [facility] [address] [place] [address]
--- OUTSIDE RECORDS SUMMARY | 2022-06-16 09:02 | XMS_ITS | Encounter Summary ---
:1945 Author Organization [facility] Address [address] [place] [address] Care Team Providers Name Role Phone Amari Torres MD Unavailable [phone] Amari Torres MD Primary Care Provider [phone] Encounter Details Date Type Department Care Team [...] on filedocumented in this encounter Care Teams Filling Winder Relationship Specialty Start Date End Date Amari Torres MD PCP - General Emergency Medicine 04/17/21 [facility] [address] [place] [address] Amari Torres MD MD Internal Medicine 01/12/15 [facility] [address] [place] [address] documented as of this encounter
--- OUTSIDE RECORDS SUMMARY | 2022-06-16 09:02 | XMS_ITS | Encounter Summary ---
:1945 Author Organization [facility] Address [address] [place], [place] [address]. [place] [address] Care Team Providers Name Role Phone DoctorMckenzie MD Primary Care Provider Unavailable Reason for Visit (Routine) - Closed Specialty Diagnoses / Procedures Referred By Contact Refer red To Contact Radiology / Radiology. Diagnoses Prev FSBC KR gave parking info Sh Breast Imaging Procedures US BREAST RIGHT [address] [facility], [address] [place] [address] Phone: Referral ID Status Reason Start Date Expiration Date Visits Requ ested Visits Authorized [id number] Closed 01/04/2014 07/03/2014 1 1 Encounter Details Date Type Department Care Team Description 01/04/2014 Hospital Encounter [facility] Faisal Morales, Breast asymmetry [facility] Breast MD Center SOLE TRIMMER [address] [facility], [address] [facility] JACQUELINE Lucretia [place] [address] [address] [place] [phone] Social History Tobacco Use Types Packs/Day Years Used Date Smoking Tobacco: Never Assessed Sex Assigned at Date Recorded Female 04/25/2022 3:34 PM CDT documented as of this encounter Plan of Treatment Not on filedocumented as of this encounter Visit Diagnoses Diagnosis Breast asymmetry Other specified disorders of breast documented in this encounter Care Teams Roller Skates Assembler Relationship Specialty Start Date End Date Mckenzie Jin MD PCP - General 06/24/13 01/11/15 documented as of this encounter
--- OUTSIDE RECORDS SUMMARY | 2022-06-16 09:02 | XMS_ITS | Encounter Summary ---
:1945 Author Organization [facility] Address [address] [place] [address] Care Team Providers Name Role Phone Amari Torres MD Unavailable [phone] Amari Torres MD Primary Care Provider [phone] Encounter Details Date Type Department Care Team Description 05/08/2022 Travel Social History Tobacco Use Types Packs/Day Years Used Date Smoking Tobacco: Never Assessed Sex Assigned at Date Recorded Female 04/25/2022 3:34 PM CDT documented as of this encounter Plan of Treatment Not on filedocumented as of this encounter Visit Diagnoses Not on filedocumented in this encounter Care Teams Master Data Analyst Relationship Specialty Start Date End Date Amari Torres MD PCP - General Emergency Medicine 04/17/21 [facility] [address] [place] [address] Amari Torres MD MD Internal Medicine 01/12/15 [facility] [address] [place] [address] documented as of this encounter
--- OUTSIDE RECORDS SUMMARY | 2022-06-16 09:02 | XMS_ITS | Encounter Summary ---
:1945 Author Organization [facility] Address [address] [place] [address] Care Team Providers Name Role Phone Clinic, [facility] Primary Care Provider [phone] Reason for Visit (Routine) - Closed Specialty Diagnoses / Procedures Referred By Contact Refer red To Contact Radiology Diagnoses DIAG RIGHT-DIGITAL Procedure Notes: Abnormal mammogram, unspecified, Sh Breast Imaging Procedures RADIOLOGY [address] [facility], [address] [place] [address] Phone: Referral ID Status Reason Start Date Expiration Date Visits Requ ested Visits Authorized [id number] Closed 12/17/2012 12/17/2013 1 1 Encounter Details Date Type Department Care Team Description 12/19/2012 Hospital Encounter [facility] Luis Grimm bnormal mammogram Betty Blevins MD Center [place] XXX [address] [place] [address] [facility] [address] [place], [place] (Work) [address] Social History Tobacco Use Types Packs/Day Years Used Date Smoking Tobacco: Never Assessed Sex Assigned at Date Recorded Female 04/25/2022 3:34 PM CDT documented as of this encounter Plan of Treatment Not on filedocumented as of this encounter Procedures Procedure Name Priority Date/Time Associated Comments Diagnosis MA DIAGNOSTIC Routine 12/19/2012 1:51 PM Abnormal mammogram Re sults for this DIGITAL RIGHT CDT procedure are in the results section. documented in this encounter Results MA Diagnostic Digital Right (12/19/2012 1:51 PM CDT) Anatomical Region Laterality Modality Breast Right Mammography Specimen (Source) Anatomical Collection Method Collection Time Re ceived Time Location / / Volume Laterality 12/19/2012 1:51 PM CDT Impressions 12/19/2012 2:14 PM CDT [...] I recommend surveillance with short-term followup ri ght diagnostic mammography and ultrasound in 6 months. [...] ISABELLE MCGEE MD Luis Grimm MD IMG MAMMOGRAPHY ORDERABLES documented in this encounter Visit Diagnoses Diagnosis Abnormal mammogram Abnormal mammogram, unspecified documented in this encounter Care Teams Biology Instructor Relationship Specialty Start Date End Date [facility] PCP - General 12/17/12 06/23/[address] [address] documented as of this encounter
--- OUTSIDE RECORDS SUMMARY | 2022-06-16 09:02 | XMS_ITS | Encounter Summary ---
:1945 Author Organization [facility] Address [address] [place] [address]. [place] [address] Care Team Providers Name Role Phone Faisal Morales MD Primary Care Provider Amari Torres MD Unavailable [phone] Reason for Referral Diagnostic Imaging Mammo (Routine) - Closed Specialty Diagnoses / Procedures Referred By Contact Refer red To Contact Radiology. Diagnoses Other screening mammogram Faisal Morales MD Breast Imaging Procedures MA Screen Bilateral w/Luis BOTTLE BLOWING MACHINE [facility] [address] [place] [address] [address] [facility] [place], [address] [place] [address] [place] [address] Referral ID Status Reason Start Date Expiration Date Visits Requ ested Visits Authorized [id number] Closed 03/19/2019 03/18/2020 1 1 Reason for Visit Diagnostic Imaging Mammo (Routine) - Closed Specialty Diagnoses / Procedures Referred By Contact Refer red To Contact Radiology. Diagnoses Other screening mammogram Faisal Morales MD Breast Imaging Procedures MA Screen Bilateral w/Luis BOTTLE BLOWING [facility]INE [facility] [address] [place] [id number] [place], [address] [place] [address] [place] [address] Referral ID Status Reason Start Date Expiration Date Visits Requ ested Visits Authorized [id number] Closed 03/19/2019 03/18/2020 1 1 Encounter Details Date Type Department Care Team Description 04/03/2019 Hospital Encounter Faisal Sahni Ot her screening Betty Breast MD [facility] mammogram Center BOTTLE BLOWING MACHINE TENDER [address] [facility], [address] [place] [address] [address] [place] [address] Social [...] mammogram documented in this encounter Care Teams Patternmaker Helper Relationship Specialty Start Date End Date Faisal Morales MD PCP - General health counselor 01/12/15 03/30/20 BOTTLE BLOWING MACHINE [facility] [address] [facility] [address] [place] [address] Amari Torres MD MD Internal Medicine 01/12/15 [facility] [address] [place] [address] documented as of this encounter
--- OUTSIDE RECORDS SUMMARY | 2022-06-16 09:02 | XMS_ITS | Encounter Summary ---
:1945 Author Organization [facility] Address [address] [place] [address]. [place] [address] Care Team Providers Name Role Phone Amari Torres MD Unavailable [phone] Ref-Primary, Physician Primary Care Provider [phone] Reason for Referral Diagnostic Imaging Mammo (Routine) - Closed Specialty Diagnoses / Procedures Referred By Contact Refer red To Contact Diagnoses Screening mammogram, encounter for Faisal Morales MD Procedures MA Screen Bilateral w/Luis [facility]GRAM COUNSEL[facility] [address] [place] [address] Referral ID Status Reason Start Date Expiration Date Visits Requ ested Visits Authorized [id number] Closed 03/30/2020 03/30/2021 1 1 Reason for Visit Diagnostic Imaging Mammo (Routine) - Closed Specialty Diagnoses / Procedures Referred By Contact Refer red To Contact Diagnoses Screening mammogram, encounter for Faisal Morales MD Procedures MA Screen Bilateral w/Luis [facility] [address] [place] [address] Referral ID Status Reason Start Date Expiration Date Visits Requ ested Visits Authorized [id number] Closed 03/30/2020 03/30/2021 1 1 Encounter Details Date Type Department Care Team Description 04/12/2020 Hospital Encounter [facility] Faisal Morales mammogram, [facility] Breast MD [place] encounter for Center PROGRAM COUNSELOR [address] [facility], [address] [place] [address] [address] [place] [phone] Social History Tobacco Use Types Packs/Day Years [...] for documented in this encounter Care Teams Electrical Engineering Designer Relationship Specialty Start Date End Date No Ref-Primary, Physician PCP - General 03/31/20 04/16/21 Amari Torres MD MD Internal Medicine 01/12/15 [facility] [address] [place] [address] documented as of this encounter
--- OUTSIDE RECORDS SUMMARY | 2022-06-16 09:02 | XMS_ITS | Encounter Summary ---
:1945 Author Organization [facility] Address [address] [place] [address] Care Team Providers Name Role Phone Amari Torres MD Unavailable [phone] Amari Torres MD Primary Care Provider [phone] Reason for Referral Diagnostic Imaging Mammo (Routine) - Closed Specialty Diagnoses / Procedures Referred By Contact Refer red To Contact Diagnoses Visit for screening mammogram Amari Torres Procedures MA Screen Bilateral mitzi/Luis [facility] Ernesto ENTER [address] [place] [address] Fax: Referral ID Status Reason Start Date Expiration Date Visits Requ ested Visits Authorized [id number] Closed 04/06/2021 04/06/2022 1 1 Reason for Visit Diagnostic Imaging Mammo (Routine) - Closed Specialty Diagnoses / Procedures Referred By Contact Refer hue To Contact Diagnoses Visit for screening mammogram Amari Torres Procedures MA Screen Bilateral w/Luis PLASCENCIA [facility] C ENTER [address] [place] [address] Fax: Referral ID Status Reason Start Date Expiration Date Visits Requ ested Visits Authorized [id number] Closed 04/06/2021 04/06/2022 1 1 Encounter Details Date Type Department Care Team Description 05/08/[address] [facility] Amari Torres Visit for screening [facility] [address] [place] [address], [address] [place] [address] [phone] Social History Tobacco Use Types Packs/Day Years [...] mammogram documented in this encounter Care Teams Order Runner Relationship Specialty Start Date End Date Amari Torres MD PCP - General Emergency Medicine 04/17/21 [facility] [address] [place] [address] Amari Torres MD MD Internal Medicine 01/12/15 [facility] [address] [place] [address] documented as of this encounter
--- OUTSIDE RECORDS SUMMARY | 2022-06-16 09:02 | XMS_ITS | Encounter Summary ---
:1945 Author Organization [facility] Address [address] [place] [address]. [place] [address] Care Team Providers Name Role Phone Faisal Morales MD Primary Care Provider Amari Torres MD Unavailable [phone] Reason for Visit (Routine) - Closed Specialty Diagnoses / Procedures Referred By Contact Refer red To Contact Radiology / Radiology. Diagnoses prev fvsd alan informed Sh Breast Imaging Procedures MA SCREENING DIGITAL BILATERAL [address] [facility], [address] [place] [address] Phone: Referral ID Status Reason Start Date Expiration Date Visits Requ ested Visits Authorized [id number] Closed 01/17/2016 01/16/2017 1 1 Encounter Details Date Type Department Care Team Description 01/20/2016 Hospital Encounter [facility] Faisal Morales En counter for Betty Hector MD screening mammogram Center SECONDARY HISTORY TEACHER for breast cancer [address] [facility], [address] [facility] [place] [address] [facility] [address] [place] [phone] Social History Tobacco Use Types Packs/Day Years [...] cancer documented in this encounter Care Teams Knife Operator Relationship Specialty Start Date End Date Faisal Morales MD PCP - General computer peripheral equipment operator 01/12/15 03/30/20 [facility] [address] [place] [address] Amari Torres MD MD Internal Medicine 01/12/15 [facility] [address] [place] [address] documented as of this encounter
--- OUTSIDE RECORDS SUMMARY | 2022-06-16 09:02 | XMS_ITS | Encounter Summary ---
:1945 Author Organization [facility] Address [address] [place] [address] Care Team Providers Name Role Phone Amari Torres MD Unavailable [phone] Amari Torres MD Primary Care Provider [phone] Encounter Details Date Type Department Care Team [...] on filedocumented in this encounter Care Teams Naval Engineer Relationship Specialty Start Date End Date Amari Torres MD PCP - General Emergency Medicine 04/17/21 [facility] [address] [place] [address] Amari Torres MD MD Internal Medicine 01/12/15 [facility] [address] [place] [address] documented as of this encounter
--- OUTSIDE RECORDS SUMMARY | 2022-06-16 09:02 | XMS_ITS | Encounter Summary ---
:1945 Author Organization [facility] Address [address] [place] [address] Care Team Providers Name Role Phone Avery Fitzgerald Primary Care Provider Encounter Details Date Type Department Care Team Description 12/17/2012 Orders Only [facility] Mahesh Willa Abnormal m ammogram [facility] Breast [address] (Primary Dx) [address] [facility], [address] [place] [address] Social History Tobacco Use Types Packs/Day Years Used Date Smoking Tobacco: Never Assessed Sex Assigned at Date Recorded Female 04/25/2022 3:34 PM CDT documented as of this encounter Plan of Treatment Not on filedocumented as of this encounter Visit Diagnoses Diagnosis Abnormal mammogram - Primary Abnormal mammogram, unspecified documented in this encounter Care Teams Desktop Administrator Relationship Specialty Start Date End Date Clinic, [facility] PCP - General 12/17/12 06/23/132023 [address] [place] [address] documented as of this encounter
--- OUTSIDE RECORDS SUMMARY | 2022-06-16 09:02 | XMS_ITS | Encounter Summary ---
:1945 Author Organization [facility] Address [address] [place] [address]. [place] [address] Care Team Providers Name Role Phone Doctor, None MD Primary Care Provider Unavailable Reason for Visit (Routine) - Closed Specialty Diagnoses / Procedures Referred By Contact Refer red To Contact Radiology / Radiology. Diagnoses Prev FSBC Sh Breast Imaging Procedures MA DIAGNOSTIC DIGITAL RIGHT [address] [facility], [address] [place] [address] Phone: Referral ID Status Reason Start Date Expiration Date Visits Requ ested Visits Authorized [id number] Closed 06/23/2013 06/23/2014 1 1 Encounter Details Date Type Department Care Team Description 07/09/2013 Hospital Encounter [facility] Luis Grimm , Breast density [facility] Breast MD Center XXX XXX [address] [place] [address] [facility], [address] [place] [address] [phone] Social History Tobacco Use Types Packs/Day Years Used Date Smoking Tobacco: Never Assessed Sex Assigned at Date Recorded Female 04/25/2022 3:34 PM CDT documented as of this encounter Plan of Treatment Not on filedocumented as of this encounter Procedures Procedure Name Priority Date/Time Associated Comments Diagnosis MA DIAGNOSTIC Routine 07/09/2013 9:04 AM Breast density Result s for this DIGITAL RIGHT DIRECTOR RADIO NEWS procedure are in the results section. documented in this encounter Results MA Diagnostic Digital Right (07/09/2013 9:04 AM DIRECTOR RADIO NEWS) Anatomical Region Laterality Modality Breast Right Mammography Specimen (Source) Anatomical Location Collection Method / Collectio n Time Received Time / Laterality Volume Impressions 07/09/2013 9:27 AM DIRECTOR RADIO NEWS IMPRESSION: BI-RADS CATEGORY: 3 - Probably Benign [...] LAST CASTELLANOS MD Narrative 07/09/2013 9:27 AM DIRECTOR RADIO NEWS MA DIAGNOSTIC DIGITAL RIGHT with CAD - [...] breast documented in this encounter Care Teams Production Planner Relationship Specialty Start Date End Date Mckenzie Jin MD PCP - General 06/24/13 01/11/15 documented as of this encounter
--- OUTSIDE RECORDS SUMMARY | 2022-06-16 09:02 | XMS_ITS | Encounter Summary ---
:1945 Author Organization [facility] Address [address] [place] [address] Care Team Providers Name Role Phone Clinic, [facility] Primary Care Provider [phone] Reason for Visit (Routine) - Closed Specialty Diagnoses / Procedures Referred By Contact Refer red To Contact Radiology Diagnoses US BREAST UNILATERAL RIGHT Procedure Notes: Abnormal mammogram, unspecified, Sh Breast Imaging Procedures RADIOLOGY [address] [facility], [address] [place] [address] Phone: Referral ID Status Reason Start Date Expiration Date Visits Requ ested Visits Authorized [id number] Closed 12/17/2012 12/17/2013 1 1 Encounter Details Date Type Department Care Team Description 12/19/2012 Hospital Encounter [facility] Luis Grimm bnormal mammogram Betty Blevins MD [place] XXX [address] [place] [address] [facility] [address] [place], [place] (Work) [address] Social History Tobacco Use [...] unspecified documented in this encounter Care Teams Advertising Sales Assistant Relationship Specialty Start Date End Date [facility], PCP - General 12/17/12 06/23/[address] [address] documented as of this encounter
--- OUTSIDE RECORDS SUMMARY | 2022-06-16 09:02 | XMS_ITS | Encounter Summary ---
:1945 Author Organization [facility] Address [address] [place] [address]. [place] [address] Care Team Providers Name Role Phone Faisal Morales MD Primary Care Provider Amari Torres MD Unavailable [phone] Reason for Visit (Routine) - Closed Specialty Diagnoses / Procedures Referred By Contact Refer red To Contact Radiology / Radiology. Diagnoses prev here Sh Breast Imaging Procedures MA SCREENING DIGITAL BILATERAL [address] [facility], [address] [place] [address] Phone: Referral ID Status Reason Start Date Expiration Date Visits Requ ested Visits Authorized [id number] Closed 01/12/2015 01/12/2016 1 1 Encounter Details Date Type Department Care Team Description 01/18/2015 Hospital Encounter [facility] Faisal Morales Ot her screening Betty Hector MD mammogram Center DIGITAL PUBLISHING SPECIALIST [address] [facility], [address] [facility] [place] [address] [address] [place] [address] Social History Tobacco Use Types Packs/Day Years Used Date Smoking Tobacco: Never Assessed Sex Assigned at Date Recorded Female 04/25/2022 3:34 PM CDT documented as of this encounter Plan of Treatment Not on filedocumented as of this encounter Procedures Procedure Name Priority Date/Time Associated Diagnosis Comme nts MA SCREENING Routine 01/18/2015 10:06 AM Other screening Resul ts for this DIGITAL BILATERAL CDT mammogram procedure are in the results section. documented in this encounter Results MA Screening Digital Bilateral (01/18/2015 10:06 AM CDT) Anatomical Region Laterality Modality Breast Bilateral Mammography Specimen (Source) Anatomical Location Collection Method / Collectio n Time Received Time / Laterality Volume Impressions 01/18/2015 2:37 PM CDT IMPRESSION: BI-RADS CATEGORY: 1 - ??Negative RECOMMENDED FOLLOW-UP: Annual Mammograph y. Exam results letter mailed to patient. ?? LAST CASTELLANOS MD Narrative 01/18/2015 2:37 PM CDT SCREENING MAMMOGRAM, BILATERAL, DIGITAL w/CAD - 01/18/2015 10:06 AM BREAST SYMPTOMS: No current breast compl aints. COMPARISON: ??01/04/2014, 12/16/2012, 2011, 11/15/2006. BREAST DENSITY: Scattered fibroglandular densities. COMMENTS: No findings of suspicion for m alignancy. ? Procedure Note Last Castellanos MD - 01/18/2015For matting of this note might be different from the original. SCREENING MAMMOGRAM, BILATERAL, DIGITAL w/CAD - 01/18/2015 10:06 AM BREAST SYMPTOMS: No current breast compl aints. COMPARISON: 01/04/2014, 12/16/2012, 12/11/19 12, 11/15/2006. BREAST DENSITY: Scattered fibroglandular densities. COMMENTS: No findings of suspicion for m alignancy. IMPRESSION IMPRESSION: BI-RADS CATEGORY: 1 - Negati ve RECOMMENDED FOLLOW-UP: Annual Mammograph y. Exam results letter mailed to patient. LAST CASTELLANOS MD Faisal Morales MD IMG MAMMOGRAPHY ORDERABLES documented in this encounter Visit Diagnoses Diagnosis Other screening mammogram documented in this encounter Care Teams Mixing And Molding Machine Operator Relationship Specialty Start Date End Date Faisal Morales MD PCP - General wage analyst 01/12/15 03/30/20 [facility] [address] [facility] [address] [place] [id number] Amari Torres MD MD Internal Medicine 01/12/15 [facility] [address] [place] [address] documented as of this encounter
--- OUTSIDE RECORDS SUMMARY | 2022-06-16 09:02 | XMS_ITS | Encounter Summary ---
:1945 Author Organization [facility] Address [address] [place] [address]. [place] [address] Care Team Providers Name Role Phone Doctor, None MD Primary Care Provider Unavailable Reason for Visit (Routine) - Closed Specialty Diagnoses / Procedures Referred By Contact Refer red To Contact Radiology / Radiology. Diagnoses Prev FSBC KR gave parking info Sh Breast Imaging Procedures MA DIAGNOSTIC DIGITAL BILAT [address] [facility], [address] [place] [address] Phone: Referral ID Status Reason Start Date Expiration Date Visits Requ ested Visits Authorized [id number] Closed 01/04/2014 07/03/2014 1 1 Encounter Details Date Type Department Care Team Description 01/04/2014 Hospital Encounter [facility] Faisal Morales, Breast asymmetry [facility] Breast MD Center DRAWER UPFITTER [address] [facility], [address] [facility] [place] [address] [address] [place] [address] Social History Tobacco Use Types [...] breast documented in this encounter Care Teams Packing Room Worker Relationship Specialty Start Date End Date Doctor, None, PCP - General 06/24/13 01/11/15 documented as of this encounter
--- OUTSIDE RECORDS SUMMARY | 2022-06-16 09:02 | XMS_ITS | Clinical Summary ---
:1945 Author Organization [facility] [place] [address] Care Team Providers Name Role Phone Amari [...] ss Type Group UCARE MR CHAUD[employer]Y MEDICARE [id number] 2019-Present [address] [place] [address] Care Teams Talent Acquisition Assistant Relationship Specialty Start Date End Date Amari Torres MD PCP - General Internal Medicine 01/10/22[address] [place] [address]
--- OUTSIDE RECORDS SUMMARY | 2022-06-16 09:02 | XMS_ITS | Encounter Summary ---
:1945 Author Organization [place] Address [address] [place] [address] Care Team Providers Name Role Phone Amari Torres MD Unavailable [phone] Ref-Primary, Physician Primary Care Provider [phone] Encounter Details Date Type Department Care [...] on filedocumented in this encounter Care Teams Sports Broadcaster Relationship Specialty Start Date End Date No Ref-Primary, Physician PCP - General 03/31/20 04/16/21 Amari Torres MD MD Internal Medicine 01/12/15 [facility] [address] [place] [address] documented as of this encounter
--- OUTSIDE RECORDS SUMMARY | 2022-06-16 09:02 | XMS_ITS | Encounter Summary ---
:1945 Author Organization [facility] Address [address] [place] [address] Care Team Providers Name Role Phone Amari Torres MD Unavailable [phone] Amari Torres MD Primary Care Provider [phone] Encounter Details Date Type Department Care Team [...] on filedocumented in this encounter Care Teams Metal Spraying Machine Operator Relationship Specialty Start Date End Date Amari Torres MD PCP - General Emergency Medicine 04/17/21 [facility] [address] [place] [address] Amari Torres MD MD Internal Medicine 01/12/15 [facility] [address] [place] [address] documented as of this encounter
[2022-06-16 09:11] LABS: Basophils Percent Auto 0.4 % (0.0-3.0); Eosinophils Percent Auto 0.3 % (0.0-7.0); Hematocrit 41.8 % (33.0-51.0); Immature Granulocytes Pct Auto 0.2 %; Lymphocytes Percent Auto 6.6 % (20-44); Mean Corpuscular HGB Conc 34 gm/dL (32-36); Mean Corpuscular Hemoglobin 32 pg (26-34); Mean Corpuscular Volume 94 fL (80-100); Monocytes Percent Auto 9.6 % (0.0-11.0); Neutrophils Percent Auto 82.9 % (42.0-72.0); Platelet Count* 260 K/uL (140-440); RDW Coefficient of Variation % 12.9 % (11.5-15.5); Red Blood Count 4.44 m/uL (4.00-5.20)
[2022-06-16 09:14] LABS: Slide Review Reflex No
--- NOTE | 2022-06-16 09:16 | ED.NURSE ---
dr mesa aware of her sats dropping to 89%. had jerome rt in to evaluate.
--- NOTE | 2022-06-16 09:23 | RESP.RT ---
Patient states that she has been coughing up mucus for the past 3 days. She is able to take a deep breath and cough. SAT 95% after taking a deep breath and coughing.
[2022-06-16 09:24] LABS: Chloride* 102 mmol/L (96-114); Sodium* 138 mmol/L (135-149)
[2022-06-16 09:25] LABS: Potassium* 3.6 mmol/L (3.6-5.1)
[2022-06-16 09:27] LABS: Creatinine* 0.7 mg/dL (0.5-1.5); Estimated Glomerular Filt Rate 90 ml/min
[2022-06-16 09:28] LABS: Blood Urea Nitrogen* 16 mg/dL (7-30); Carbon Dioxide* 27 mmol/L (20-32); Glucose* 158 mg/dL (60-115)
[2022-06-16 09:29] LABS: Calcium* 8.9 mg/dL (8.4-10.6)
[2022-06-16 09:52] LABS: C Reactive Protein* 14.9 mg/dL (0.5-1.0)
[2022-06-16] MEDS: DOXYCYCLINE HYCLATE 100 MG in 0.9 % SODIUM CHLORIDE Mini-bag 100 ML IVPB (10:45)
--- NOTE | 2022-06-16 10:55 | ED.NURSE ---
was up to void. is steady on feet. is getting Doxycycline 100 mg iv.
[2022-06-16] MEDS: IBUPROFEN 200 MG TABLET 400 MG PO (11:27)
--- NOTE | 2022-06-16 12:31 | ED.NURSE ---
report was called to margarito hermosillo on 1 l and sats increased to 94%.
[2022-06-16] MEDS: AZITHROMYCIN 250 MG TABLET 500 MG PO (13:45)
[2022-06-16] MEDS: ONDANSETRON ODT 4 MG TAB PO (13:45)
--- NOTE | 2022-06-16 13:53 | P.IMHP_ITS ---
Hospitalist- H&P: HPI History of Present Illness Date Seen: 06/16/22 Chief complaint: Trouble breathing Narrative: Shana Washburn is a 77 year old female admitted through the emergency department with a 4 to five-day history of sore throat, cough, fever, dyspnea. Patient reports no other significant medical problems and no illness up until the onset of this current illness. She also reports that she has had anorexia and nausea. She has had very little to eat in the last 4 days. She has not had abdominal pain. She reports her cough is severe and that she has not been able to sleep because of it. No vomiting. No diarrhea. She was seen in Urgent Care 2 days ago with a negative influenza and COVID test. Treated symptomatically with a cough medicine. Because of ongoing fever and dyspnea she reports to the emergency room today where she is identified with a right lower lobe pneumonia. She has no previous history of lung disease. She does not have asthma or COPD. She is not a smoker. In the emergency department she was found to be hypoxic with O2 sats on room air in the upper 80s. Review of Systems Narrative: Other than the above symptoms she reports feeling well. [facility] Medical History (Updated 06/16/22 @ 14:01 by Mikael Knapp MD) Cataract Hyperlipidemia Osteopenia Screening due Surgical History (Updated 06/16/22 @ 13:56 by Mikael Knapp MD) History of cataract surgery Family History Father Sarcoidosis Sister Breast cancer Social History (Updated 06/16/22 @ 13:59 by Mikael Knapp MD) Narrative: She lives with her in [place]. has some cognitive impairment. She indicates her healthcare power of assistant city attorney would be her or her daughter Geeta Jeong who lives in [place] or her son Royal Washburn who lives in [place]. Code status is full. She does not smoke. She drinks a glass of wine about 3 or 4 times a week Highest level of school completed/degree received: Master's degree Smoking Status: Former smoker Do you use any of these nicotine containing products: None Second hand tobacco smoke exposure: No How often do you have a drink containing alcohol: 2-3 times a week Alcohol type: wine Alcohol type details: 6oz wine 3-4 times a week How many standard drinks containing alcohol do you have on a typical day: 1 or 2 How often do you have six or more drinks on one occasion: Never AUDIT-C Alcohol total score: 3 Non-prescribed substance use: denies use Caffeine: Yes (1 cup a day) Little interest or pleasure in doing things: not at all Feeling down, depressed, or hopeless: not at all service: No Meds Home Medications and Allergies Allergies Allergy/AdvReac Type Severity Reaction Status Date / Time cephalexin Allergy Mild Rash Verified 06/14/22 14:10 Exam Narrative: Exam Narrative: She is alert and appears in no distress. She is oriented to her circumstances. She gives her own history. Eyes normal. Oropharynx normal. Neck is supple without mass or adenopathy. No stridor. Respirations are clear to auscultation except a occasional crackle at the right lung base. Breathing is unlabored. No wheezing. Cardiovascular: S1, S2, regular rate and rhythm. No murmur gallop or rub. Abdomen: Bowel sounds active. Abdomen is soft without tenderness or mass. Extremities with intact pulses. No edema. Good perfusion in all 4 extremities. Const: Vital Signs, click to edit/add: Vital Signs - 24 hr 06/16/22 08:04 06/16/22 08:39 06/16/22 08:23 Temperature 99 F Pulse Rate Pulse Rate [Pulse Oximeter] 105 H 97 96 Respiratory Rate 18 20 Blood Pressure Blood Pressure [Ri ght Arm] Blood Pressure [Ri ght Upper Arm] 129/71 135/59 L Pulse Oximetry 94 95 94 Oxygen Delivery Me thod Room Air Room Air Room Air 06/16/22 08:36 06/16/22 12:44 06/16/22 12:53 Temperature 98.4 F Pulse Rate Pulse Rate [Pulse Oximeter] 84 Respiratory Rate 14 16 Blood Pressure Blood Pressure [Ri ght Arm] 135/61 Blood Pressure [Ri ght Upper Arm] Pulse Oximetry 92 91 90 Oxygen Delivery Me thod Room Air Room Air 06/16/22 09:20 06/16/22 09:30 06/16/22 09:32 Temperature Pulse Rate 99 96 100 Pulse Rate [Pulse Oximeter] Respiratory Rate Blood Pressure 119/55 L Blood Pressure [Ri ght Arm] Blood Pressure [Ri ght Upper Arm] Pulse Oximetry 88 92 93 Oxygen Delivery Me thod 06/16/22 09:45 06/16/22 10:00 06/16/22 10:02 Temperature Pulse Rate 95 99 98 Pulse Rate [Pulse Oximeter] Respiratory Rate Blood Pressure 125/52 L Blood Pressure [Ri ght Arm] Blood Pressure [Ri ght Upper Arm] Pulse Oximetry 92 95 93 [facility] 06/16/22 10:15 06/16/22 10:30 06/16/22 10:32 Temperature Pulse Rate 97 96 95 Pulse Rate [Pulse Oximeter] Respiratory Rate Blood Pressure 134/64 Blood Pressure [Ri ght Arm] Blood Pressure [Ri ght Upper Arm] Pulse Oximetry 91 90 89 [facility] 06/16/22 10:45 06/16/22 11:00 06/16/22 11:02 Temperature Pulse Rate 92 91 92 Pulse Rate [Pulse Oximeter] Respiratory Rate Blood Pressure 130/62 Blood Pressure [Ri ght Arm] Blood Pressure [Ri ght Upper Arm] Pulse Oximetry 92 93 93 [facility] 06/16/22 11:15 06/16/22 11:30 06/16/22 11:32 Temperature Pulse Rate 94 90 90 Pulse Rate [Pulse Oximeter] Respiratory Rate Blood Pressure 135/61 Blood Pressure [Ri ght Arm] Blood Pressure [Ri ght Upper Arm] Pulse Oximetry 90 93 91 [facility] 06/16/22 11:45 06/16/22 12:00 06/16/22 12:02 Temperature Pulse Rate 87 90 86 Pulse Rate [Pulse Oximeter] Respiratory Rate Blood Pressure 130/58 L Blood Pressure [Ri ght Arm] Blood Pressure [Ri ght Upper Arm] Pulse Oximetry 89 87 L 88 [facility] 06/16/22 12:15 Temperature Pulse Rate 89 Pulse Rate [Pulse Oximeter] Respiratory Rate Blood Pressure Blood Pressure [Ri ght Arm] Blood Pressure [Ri ght Upper Arm] Pulse Oximetry 90 [facility] Hospital[facility] - H&P: Result Labs Labs: Short CBC 06/16/22 Range/Units 09:00 WBC 11.20 H (4.50-11.00) K/uL Hgb 14.0 (12.0-16.0) gm/dL Hct 41.8 (33.0-51.0) % Plt Count 260 (140-440) K/uL BMP 06/16/22 09:00 Sodium 138 Potassium 3.6 Chloride 102 Carbon Dioxide 27 BUN 16 Creatinine 0.7 Glucose 158 H Calcium 8.9 Assessment and Plan Assessment and plan (1) Community acquired pneumonia: Problem comment: Right lower lobe pneumonia. Likely also the cause of her anorexia and nausea. Status: Acute Plan Patient admitted due to hypoxic respiratory failure in the emergency department. On examination now all couple hours later her O2 sats are in the 90s. Given her history of allergies to cephalexin I have elected to treat her with a Zithromax and alone and follow clinically. Discharge to home tomorrow if maintaining O2 sats on room air and able to tolerate p.o. food and fluid. Total time spent today is 65 minutes, 40 minutes in coordination of care and discussing with patient other providers evaluation management of community- acquired pneumonia and hypoxia
[2022-06-16] MEDS: IBUPROFEN 400 MG TABLET PO (15:46)
--- NOTE | 2022-06-16 18:25 | PC.NURSE ---
End of Shift: Patient pleasant and cooperative, arrived to the floor about 1400. Patient vitally stable, lungs currently clear but course at times, BS WNL, IV intact. When falling asleep, pattern chart writer applied 0.5 L of oxygen NC, otherwise patient's sats are greater than 90% When dozing off sats fell to about 85%. Patient is independent in room. Patient denies pain. Patient has a dry cough that is productive at times. Motrin given once for comfort and cough syrup given once. Zophran also given once for nausea. Patient tolerating regular diet.
[2022-06-17 06:47] LABS: Basophils Percent Auto 0.4 % (0.0-3.0); Eosinophils Percent Auto 1.8 % (0.0-7.0); Hematocrit 37.8 % (33.0-51.0); Hemoglobin* 12.3 gm/dL (12.0-16.0); Immature Granulocytes Pct Auto 0.6 %; Lymphocytes Percent Auto 12.9 % (20-44); Mean Corpuscular HGB Conc 33 gm/dL (32-36); Mean Corpuscular Hemoglobin 31 pg (26-34); Mean Corpuscular Volume 96 fL (80-100); Monocytes Percent Auto 10.8 % (0.0-11.0); Neutrophils Percent Auto 73.5 % (42.0-72.0); Platelet Count* 288 K/uL (140-440); RDW Coefficient of Variation % 13.2 % (11.5-15.5); Red Blood Count 3.92 m/uL (4.00-5.20); White Blood Count* 11.73 K/uL (4.50-11.00)
[2022-06-17 06:49] LABS: Slide Review Reflex No
--- NOTE | 2022-06-17 06:57 | PC.NURSE ---
Status end of shift [id number] Alert and oriented. Denies pain. Pleasant and cooperative. Up independently in room. Continues with congested cough. Required 1L NC overnight to maintain sats >90%. Able to wean to room air while awake. Encouraging fluid intake. Voiding without difficulty. Pt reports intermittent resting throughout night.
[2022-06-17 07:00] VITALS: BP 123/60; PULSE 84; RESP 14; TEMP 36.7; O2SAT 90
[2022-06-17 07:19] LABS: C Reactive Protein* 14.3 mg/dL (0.5-1.0)
[2022-06-17] MEDS: IBUPROFEN 400 MG TABLET PO ×2 (07:33→19:54)
[2022-06-17] MEDS: AZITHROMYCIN 250 MG TABLET PO (08:47)
[2022-06-17 11:37] VITALS: BP 131/56; PULSE 71; RESP 14; TEMP 36.8; O2SAT 93
--- NOTE | 2022-06-17 12:53 | PM.IMPN1 ---
Progress Note: A&P Assessment and plan (1) Community acquired pneumonia: Problem details: Right lower lobe pneumonia. Likely also the cause of her anorexia and nausea. Status: Acute (2) Hypoxia: Problem details: Due to pneumonia Status: Acute Plan Continue in hospital for another day pending resolution of hypoxia. Will continue beta-lactam for now. If not clinically improving consider respiratory quinolone or trial of beta-lactam. History of beta-lactam allergy to cephalexin. Time Spent With Patient Total time spent: Total time spent today is 35 minutes, 20 minutes in coordination of care discussing with patient and other providers ongoing management of hypoxia, pneumonia. Subjective Date Seen: 06/17/22 Interval history: 77-year-old female seen in followup of hospitalization for hypoxic respiratory failure with pneumonia. Patient continues to require supplemental oxygen to maintain her O2 sats at 90%. She reports still a poor appetite though she has had a little bit for breakfast today and a little bit for lunch. She did not sleep well last night. She still having quite a bit of problems with coughing. Profound fatigue. She feels hot and cold but has not had a documented fever. Exam Narrative: Exam Narrative: She is alert and oriented. She appears in no distress. Respirations with right basilar crackles. Breathing is unlabored. Cardiovascular: S1, S2, regular rate and rhythm. No murmur gallop or rub. Abdomen: Bowel sounds active. Abdomen is soft without tenderness or mass. Extremities without edema. Good perfusion in all 4 extremities. Const: Vital Signs, click to edit/add: Vital Signs - 24 hr 06/16/22 15:00 06/16/22 15:00 06/16/22 15:00 Temperature 98.8 F Pulse Rate [Pulse Oximeter] 82 Respiratory Rate 22 Blood Pressure [Ri ght Arm] 132/72 Pulse Oximetry 98 98 Oxygen Delivery Me thod Room Air Room Air Oxygen Flow Rate 06/16/22 22:47 06/16/22 22:55 06/16/22 22:55 Temperature 98 F Pulse Rate [Pulse Oximeter] 69 69 Respiratory Rate 22 Blood Pressure [Ri ght Arm] 112/44 L Pulse Oximetry 94 94 Oxygen Delivery Me thod Nasal Cannula Nasal Cannula Oxygen Flow Rate 1 1 06/17/22 07:00 06/17/22 07:00 06/17/22 07:00 Temperature 98.1 F Pulse Rate [Pulse Oximeter] 84 84 Respiratory Rate 14 14 14 Blood Pressure [Ri ght Arm] 123/60 Pulse Oximetry 90 90 Oxygen Delivery Me thod Room Air Room Air Oxygen Flow Rate 06/17/22 11:37 Temperature 98.2 F Pulse Rate [Pulse Oximeter] 71 Respiratory Rate 14 Blood Pressure [Ri ght Arm] 131/56 L Pulse Oximetry 93 Oxygen Delivery Me thod Nasal Cannula Oxygen Flow Rate 0.5 Documenting provider has reviewed patient's vital signs: yes Labs Labs: Laboratory Results - last 24 hr 06/17/22 06/17/22 05:47 05:47 WBC 11.73 H RBC 3.92 L Hgb 12.3 Hct 37.8 MCV 96 MCH 31 MCHC 33 RDW Coeff of June 13.2 Plt Count 288 Neut % (Auto) 73.5 H Lymph % (Auto) 12.9 L [place] % (Auto) 10.8 Eos % (Auto) 1.8 Baso % (Auto) 0.4 Neut # (Auto) 8.60 H Lymph # (Auto) 1.50 [place] # (Auto) 1.30 H Eos # (Auto) 0.20 Baso # (Auto) 0.00 Abs Immat Gran (auto) 0.10 Imm/Tot Granulo (auto) 0.6 C-Reactive Protein 14.3 H
[2022-06-17 15:00] VITALS: BP 146/59; PULSE 78; RESP 16; TEMP 37.3; O2SAT 91
--- NOTE | 2022-06-17 18:24 | PC.NURSE ---
End of Shift: Patient pleasant and cooperative. Patient vitally stable, lung course, BS WNL, IV intact. Patient rated pain once this morning 1/10 in chest from cough. Motrin and cough syrup given once this shift. Patient with sats in low to mid 90's, with ambulating in the nunez patients sats were 90's. When dozing off to sleep patient's sats dropped to at most 86%, most oxygen administered this shift was 0.5 L. Patient independent in room. Patient tolerating regular diet and urinating.
[2022-06-17 19:44] VITALS: BP 136/77; PULSE 93; RESP 20; TEMP 38.3; O2SAT 93
[2022-06-17 20:47] VITALS: TEMP 37
[2022-06-17 23:15] VITALS: BP 131/62; PULSE 79; RESP 20; TEMP 37; O2SAT 94
--- NOTE | 2022-06-18 06:23 | PC.NURSE ---
End of shift status Pt alert and oriented. Denies pain. BP stable. T-max 100.9. Required 1L NC overnight while sleeping. Productive cough with yellow sputum noted. PRN cough syrup and ibuprofen given at bedtime. Up independently. Voiding without difficulty. Encouraging ambulation around room to improve activity tolerance. Pt observed resting between cares. Possible d/c back home today.
[2022-06-18 08:10] VITALS: BP 129/53; PULSE 81; RESP 16; TEMP 37.2; O2SAT 96
[2022-06-18] MEDS: AMOXICILLIN/CLAVULANATE 875 mg/125 mg TABLET PO (10:39)
[2022-06-18] MEDS: AZITHROMYCIN 250 MG TABLET PO (10:39)
[2022-06-18 11:10] VITALS: BP 143/77; PULSE 92; RESP 18; TEMP 38; O2SAT 94
[2022-06-18 11:24] VITALS: TEMP 38
[2022-06-18] MEDS: IBUPROFEN 400 MG TABLET PO (11:24)
--- NOTE | 2022-06-18 11:45 | PM.DS1 ---
DS: Providers Provider Date Seen: 06/18/22 Date of admission: 06/16/22 12:32 Primary care physician: Amari Torres MD Admitting Clinician: Mikael Knapp MD Attending Physician on discharge: Mikael Knapp MD Date of Discharge: 06/18/22 DS: Diagnosis Discharge Diagnosis (1) Hypoxia: Status: Acute Problem details: Due to pneumonia minimal hypoxia overnight. O2 sats in the upper 90s on room air today (2) Community acquired pneumonia: Status: Acute Problem details: Right lower lobe pneumonia. Likely also the cause of her anorexia and nausea. (3) Adverse drug reaction: Status: Acute Problem details: History of rash from cephalexin given for a spider bite many years ago. Treatment here with a Zithromax and Augmentin led to no adverse reaction DS: Summary Hospital Course Hospital Course: 77-year-old female admitted to the hospital with cough, fever, dyspnea, nausea and anorexia. Time of admission she was diagnosed with pneumonia. Treated initially with a Zithromax. Due to concern about possible allergy to cephalexin no beta lactam was added on admission. Augmentin was added later for better coverage. She tolerated this well. Status at Discharge Functional status at discharge: independent ambulation Overall status at discharge: patient is progressing back to baseline Time Spent with Patient Time attestation: Total time spent providing and/or coordinating discharge services: Time spent: Greater than 30 minutes Exam Narrative: Exam Narrative: She is alert and appears in no distress. Breathing is unlabored. Respirations are clear to auscultation. Cardiovascular: S1, S2, regular rate and rhythm. Abdomen is soft without tenderness or mass. Extremities without edema. Good perfusion all 4 extremities. Const: Vital Signs, click to edit/add: Vital Signs - 24 hr 06/17/22 15:00 06/17/22 15:00 06/17/22 15:00 Temperature 99.1 F Pulse Rate [Pulse Oximeter] 78 78 Respiratory Rate 16 16 16 Blood Pressure [Ri ght Arm] 146/59 H Pulse Oximetry 91 91 Oxygen Delivery Me thod Room Air Room Air Oxygen Flow Rate 06/17/22 19:44 06/17/22 20:47 06/17/22 23:15 Temperature 100.9 F H 98.6 F Pulse Rate [Pulse Oximeter] 93 79 Respiratory Rate 20 20 Blood Pressure [Ri ght Arm] 136/77 Pulse Oximetry 93 Oxygen Delivery Me thod Room Air Oxygen Flow Rate 06/17/22 23:15 06/17/22 23:15 06/18/22 11:24 Temperature 98.6 F 100.4 F H Pulse Rate [Pulse Oximeter] 79 Respiratory Rate 20 20 Blood Pressure [Ri ght Arm] 131/62 Pulse Oximetry 94 94 Oxygen Delivery Me thod Nasal Cannula Nasal Cannula Oxygen Flow Rate 0.5 0.5 DS: Data Data Completed and Pending Labs on day of discharge: Preliminary micro results at discharge 06/16/22 09:00 Blood Culture - Preliminary Blood NO GROWTH AFTER 48 HOURS Discharge Plan Discharge Disposition: Home, Self-Care Date of Admission: 06/16/22 12:32 Attending Provider on Discharge: Mikael Knapp Primary Care Provider: Amari Torres Condition: Stable Anticipated Discharge Date/Time: 06/18/22 13:00 Discharge Medications: New amoxicillin-pot clavulanate 875-125 mg tablet 1 tab PO BID Qty: 10 0RF Continued calcium carbonate [Tums] 200 mg calcium (500 mg) tablet,chewable 200 mg PO DAILY PRN Discontinued benzonatate 200 mg capsule 200 mg PO BID-TID PRN (Reason: cough) Qty: 10 0RF Discharge Orders: Discharge Order (Routine); Ordered 06/18/22 Ordered By: Mikael Knapp Patient Education: Community Acquired Pneumonia (ED) Additional Instructions: Take amoxicillin clavulanate as prescribed, twice a day. See your doctor in the next week for recheck. Return to the hospital if getting worse. Activity Level: Activity as Tolerated Discharge Diet: Regular Follow Up Appointments: Amari Torres MD [Primary Care Provider] - (One week) Forms: [employer] Info Instructions
--- NOTE | 2022-06-18 13:22 | PC.NURSE ---
Patient alert and oriented x4, lungs sounds were clear except for lower right lobe had course crackles, patient up Ind, tolerating a regular diet, IV D/C'd at discharge, education was given to patient, patient verbalized understanding.
== END 2022-06-18 13:10 | disposition home or self-care (01) ==
LOC: ED 12:05 → MEDSURG 12:32
PROVIDERS: Admitting Provider Family Medicine; Emergency Provider Family Medicine; PCP Internal Medicine; Visit Provider Family Medicine
DX: J18.9 Pneumonia, unspecified organism (principal); R09.02 Hypoxemia; R63.0 Anorexia; R11.0 Nausea; T36.1X5A Adverse effect of cephalosporins and other beta-lactam antibiotics, initial encounter; L27.0 Generalized skin eruption due to drugs and medicaments taken internally; Z68.24 Body mass index [BMI] 24.0-24.9, adult; R05.9 Cough, unspecified; R50.9 Fever, unspecified; R06.00 Dyspnea, unspecified; Z87.891 Personal history of nicotine dependence; R52 Pain, unspecified; Z20.822 Contact with and (suspected) exposure to COVID-19; F51.8 Other sleep disorders not due to a substance or known physiological condition; R53.83 Other fatigue
CPT/HCPCS: 36415; 71045; 80048; 85025; 86140; 87040; 87502; 87634; 87635; 94761; 96365; 96366; 99284; A9270; G0378; G0379

== ENCOUNTER 2022-07-16 06:51 | Emergency (ER) | payer MEDICARE, SELFPAY ==
[2022-07-16] VITALS (22 sets, daily range): BP systolic 102–185; BP diastolic 58–90; PULSE 68–89; RESP 16; TEMP 36.4; O2SAT 94–98; BMI 23.2
--- NOTE | 2022-07-16 07:29 | ED.GIBLEED ---
HPI - GI Bleed General Chief complaint: GI Bleed Stated complaint: Abdominal pain/rectal bleeding Time Seen by Provider: 07/16/22 07:10 History of Present Illness HPI Narrative: 77-year-old woman presenting to the emergency department with concern abdominal pain and rectal bleeding. Beginning yesterday after left breakfast started to have some lower abdominal cramping. Looser stools followed and then in the evening started to have watery bloody stools every 2 hours. Cramping is relieved somewhat by stooling and then builds again. Has not had any fever. Is not nauseated. There has been no vomiting. Not short of breath. No lightheadedness. Just generally feels weak. Seen nearly a month ago and admitted here for multifocal pneumonia. That has cleared other than a mild lingering cough. She denies a history of hemorrhoids. Notes a completely clean colonoscopy 10 years ago. Denies diverticular disease. Is not anticoagulated. Related Data Home Medications Medication Instructions Recorded Confirmed calcium carbonate 500 mg calcium 500 mg PO DAILY 06/21/22 07/16/22 (1,250 mg) tablet Previous Rx's Medication Instructions Recorded levofloxacin 500 mg tablet 500 mg PO DAILY #5 tabs 07/16/22 Allergies Allergy/AdvReac Type Severity Reaction Status Date / Time cephalexin Allergy Mild Rash Verified 06/21/22 10:02 Review of Systems Status of ROS: Reports: 10 or more systems reviewed and unremarkable except as noted in History and below [facility] Medical History Adverse drug reaction Cataract Hyperlipidemia Osteopenia Pneumonia Screening due Surgical History History of cataract surgery Family History Father Sarcoidosis Sister Breast cancer Social History Narrative: She lives with her in [place]. has some cognitive impairment. She indicates her healthcare power of workers compensation defense attorney would be her or her daughter Geeta Jeong who lives in [place] or her son Royal Washburn who lives in [place]. Code status is full. She does not smoke. She drinks a glass of wine about 3 or 4 times a week Highest level of school completed/degree received: Master's degree Smoking Status: Former smoker Do you use any of these nicotine containing products: None Second hand tobacco smoke exposure: No How often do you have a drink containing alcohol: 2-3 times a week Alcohol type: wine Alcohol type details: 6oz wine 3-4 times a week How many standard drinks containing alcohol do you have on a typical day: 1 or 2 How often do you have six or more drinks on one occasion: Never AUDIT-C Alcohol total score: 3 Non-prescribed substance use: denies use Caffeine: Yes (1 cup a day) Little interest or pleasure in doing things: not at all Feeling down, depressed, or hopeless: not at all service: No Exam Narrative: Exam Narrative: Pleasant. Of good energy. Skin is warm and dry. Extremities are well perfused. There is no extremity edema. Moving all extremities without difficulty. She is breathing easily. Lungs are clear. Oropharynx is moist not erythematous. Heart is with regular rate and rhythm. Accented S2. Abdomen with normoactive bowel sounds is soft with [id number] tenderness in the left lower quadrant. Minimal tenderness in the right lower abdomen. No masses appreciated. No flank pain. With nursing stud master/mistress I return to do an anoscopy. I do not see evidence of bleeding externally. Mild irritation of anal mucosa externally at 6 o'clock position. No hemorrhoidal tissue. Dentate line at 12:00 p.m. position is mildly irritated. There is trace clotted blood at the far end of the anoscope. No internal hemorrhoids visualized. Const: Vital Signs, click to edit/add: Vital Signs - 24 hr 07/16/22 06:59 07/16/22 07:33 07/16/22 07:09 Temperature 97.6 F Pulse Rate 83 Pulse Rate [Pulse Oximeter] 89 Respiratory Rate 16 Blood Pressure 138/65 Blood Pressure [Le ft Upper Arm] 144/90 H Pulse Oximetry 95 94 95 Oxygen Delivery Me thod Room Air 07/16/22 07:10 07/16/22 07:15 07/16/22 07:30 Temperature Pulse Rate 86 86 79 Pulse Rate [Pulse Oximeter] Respiratory Rate Blood Pressure Blood Pressure [Le ft Upper Arm] Pulse Oximetry 96 96 95 Oxygen Delivery Me thod 07/16/22 08:17 07/16/22 07:45 07/16/22 08:00 Temperature Pulse Rate 78 76 Pulse Rate [Pulse Oximeter] 68 Respiratory Rate Blood Pressure Blood Pressure [Le ft Upper Arm] 185/58 H Pulse Oximetry 97 97 98 Oxygen Delivery Me thod Room Air 07/16/22 08:15 07/16/22 08:19 07/16/22 08:41 Temperature Pulse Rate 69 69 79 Pulse Rate [Pulse Oximeter] Respiratory Rate Blood Pressure 135/58 L Blood Pressure [Le ft Upper Arm] Pulse Oximetry 96 97 97 Oxygen Delivery Me thod 07/16/22 08:45 07/16/22 09:00 07/16/22 09:01 Temperature Pulse Rate 77 73 74 Pulse Rate [Pulse Oximeter] Respiratory Rate Blood Pressure 105/86 Blood Pressure [Le ft Upper Arm] Pulse Oximetry 97 98 97 Oxygen Delivery Me thod 07/16/22 09:15 07/16/22 09:30 07/16/22 09:32 Temperature Pulse Rate 78 70 75 Pulse Rate [Pulse Oximeter] Respiratory Rate Blood Pressure 140/65 H Blood Pressure [Le ft Upper Arm] Pulse Oximetry 97 98 98 Oxygen Delivery Me thod 07/16/22 09:45 07/16/22 10:00 07/16/22 10:01 Temperature Pulse Rate 70 69 72 Pulse Rate [Pulse Oximeter] Respiratory Rate Blood Pressure 102/84 Blood Pressure [Le ft Upper Arm] Pulse Oximetry 97 97 98 Oxygen Delivery Tn thod 07/16/22 10:15 Temperature Pulse Rate 68 Pulse Rate [Pulse Oximeter] Respiratory Rate Blood Pressure Blood Pressure [Le ft Upper Arm] Pulse Oximetry 97 Oxygen Delivery Me thod Documenting provider has reviewed patient's vital signs: yes Course Course Hospital Course: Patient was signed out to me by Dr. Mendez, please see his dictation for full details. I followed up on her labs and CT. Her labs are overall very reassuring. Her white cell count is normal, hemoglobin is 14.0. CRP is less than 0.5. Electrolytes are unremarkable. BUN is 15, creatinine is 0.8. LFTs are normal. COVID is negative. CT scan by my review showed inflammation of the descending colon. Final radiology report is as follows:IMPRESSION: Colonic wall thickening and inflammation extending from the splenic flexure to the level of the descending colon/splenic junction. Findings concerning for nonspecific infectious/inflammatory colitis. Ischemic colitis is not excluded but there is no evidence of pneumatosis or portal venous gas. Nodular patchy consolidations within the periphery of the right lower lobe and to lesser extent the dependent portion of the left lower lobe which given differences in technique appears similar to x-ray from June 16, 2022. 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 Please note that all CT scans at this facility use dose modulation, iterative reconstruction, and/or weight-based dosing when appropriate to reduce radiation dose to as low as reasonably achievable. Reevaluation of the patient shows her to be comfortable. She feels overall her symptoms are largely improved. She has had 1 episode of diarrhea while here, she says was not bloody. Unfortunately, we did not obtain a sample. In talking with her, onset of this illness was relatively gradual yesterday with crampy abdominal pain and worsening diarrhea throughout the night. She rates her health as excellent, she does not have any prior history of atrial fibrillation or any vascular disease. I think the likelihood of ischemic colitis is really rather low. Her abdominal exam is benign, pain is minimal at this point. Labs are benign. She does still have some respiratory symptoms. She still showing evidence of this prior pneumonia 1 month out, which certainly radiographically may not be surprising. Discussed with her that with colitis, we certainly can simply observe that without any specific treatment. However, given that she is having some ongoing respiratory symptoms and is still showing radiographic evidence of this pneumonia without really any significant clearing, it may also be reasonable to cover her with an antibiotic that might provide some benefit for her in terms of her colitis as well as ongoing pneumonia. As such, I am going to prescribe Levaquin for 5 days. Given that she is well-appearing, feeling improved, with a benign abdominal exam, normal vital signs and reassuring labs, I think it is reasonable to let her go home. She understands she should have a low threshold to return if she has worsening abdominal pain, worsening bleeding, new symptoms such as fever or vomiting, or any other new concerns. I have asked her to follow up with primary care in the next week or so for recheck of her colitis and also to arrange for repeat imaging in a couple weeks or so to make sure she does have radiographic clearing of her pneumonia. She is comfortable with that plan. Vital Signs Vital signs: Initial Vital Signs Temperature 97.6 F 07/16/22 06:59 Temperature Source Temporal Artery Scan 07/16/22 06:59 Pulse Rate 89 07/16/22 06:59 Respiratory Rate 16 07/16/22 06:59 Blood Pressure 144/90 H 07/16/22 06:59 Blood Pressure Mean 108 07/16/22 06:59 Pulse Oximetry 95 07/16/22 06:59 Oxygen Delivery Method 07/16/22 06:59 Vital Signs Temperature 97.6 F 07/16/22 06:59 Pulse Rate 89 07/16/22 06:59 Respiratory Rate 16 07/16/22 06:59 Blood Pressure 144/90 H 07/16/22 06:59 Pulse Oximetry 95 07/16/22 06:59 Oxygen Delivery Method 07/16/22 06:59 Temperature 97.6 F 07/16/22 06:59 Pulse Rate 68 07/16/22 10:15 Respiratory Rate 16 07/16/22 06:59 Blood Pressure 102/84 07/16/22 10:01 Pulse Oximetry 97 07/16/22 10:15 Oxygen Delivery Method 07/16/22 08:17 MDM - GI Bleed MDM Narrative Medical decision making narrative: IV has been established. Will be receiving IV fluids. Abdominal imaging pending as well as labs. Leading in differential would be diverticulitis or perhaps a colitis. Medical Records Attestation: I reviewed the patient's medical records. Lab Data Labs: Lab Results 07/16/22 07/16/22 07/16/22 Range/Units 07:30 07:30 07:30 WBC 10.57 (4.50-11.00) K/uL RBC 4.49 (4.00-5.20) m/uL Hgb 14.0 (12.0-16.0) gm/dL Hct 41.6 (33.0-51.0) % MCV 93 (80-100) fL MCH 31 (26-34) pg MCHC 34 (32-36) gm/dL RDW Coeff of June 13.6 (11.5-15.5) % Plt Count 227 (140-440) K/uL Neut % (Auto) 76.9 H (42.0-72.0) % Lymph % (Auto) 15.6 L (20-44) % [place] % (Auto) 5.9 (0.0-11.0) % Eos % (Auto) 0.9 (0.0-7.0) % Baso % (Auto) 0.5 (0.0-3.0) % Neut # (Auto) 8.10 H (1.7-7.0) K/uL Lymph # (Auto) 1.60 (0.90-2.90) K/uL [place] # (Auto) 0.60 (0.00-0.90) K/UL Eos # (Auto) 0.10 (0.00-0.50) K/uL Baso # (Auto) 0.05 (0.00-0.30) K/uL Sodium 139 (135-149) mmol/L Potassium 3.5 L (3.6-5.1) mmol/L Chloride 107 (96-114) mmol/L Carbon Dioxide 24 (20-32) mmol/L BUN 15 (7-30) mg/dL Creatinine 0.8 (0.5-1.5) mg/dL Estimated Creat Clear 46.54 Estimated GFR 76 ml/min Glucose 122 H (60-115) mg/dL Calcium 9.1 (8.4-10.6) mg/dL Total Bilirubin 0.9 (0.1-1.5) mg/dL Direct Bilirubin 0.1 (0.0-0.5) mg/dL AST 30 (12-35) U/L ALT 22 (4-35) U/L Alkaline Phosphatase 71 (40-150) U/L C-Reactive Protein < 0.5 L (0.5-1.0) mg/dL Total Protein 6.9 (6.0-8.3) g/dL Albumin 4.1 (3.3-5.0) g/dL SARS-CoV-2 (PCR) (Negative) Influenza Type A (PCR) (Negative) Influenza Type B (PCR) (Negative) Blood Type AB Negative Antibody Screen NEGATIVE 07/16/22 Range/Units 08:20 WBC (4.50-11.00) K/uL RBC (4.00-5.20) m/uL Hgb (12.0-16.0) gm/dL Hct (33.0-51.0) % MCV (80-100) fL MCH (26-34) pg MCHC (32-36) gm/dL RDW Coeff of June (11.5-15.5) % Plt Count (140-440) K/uL Neut % (Auto) (42.0-72.0) % Lymph % (Auto) (20-44) % [place] % (Auto) (0.0-11.0) % Eos % (Auto) (0.0-7.0) % Baso % (Auto) (0.0-3.0) % Neut # (Auto) (1.7-7.0) K/uL Lymph # (Auto) (0.90-2.90) K/uL [place] # (Auto) (0.00-0.90) K/UL Eos # (Auto) (0.00-0.50) K/uL Baso # (Auto) (0.00-0.30) K/uL Sodium (135-149) mmol/L Potassium (3.6-5.1) mmol/L Chloride (96-114) mmol/L Carbon Dioxide (20-32) mmol/L BUN (7-30) mg/dL Creatinine (0.5-1.5) mg/dL Estimated Creat Clear Estimated GFR ml/min Glucose (60-115) mg/dL Calcium (8.4-10.6) mg/dL Total Bilirubin (0.1-1.5) mg/dL Direct Bilirubin (0.0-0.5) mg/dL AST (12-35) U/L ALT (4-35) U/L Alkaline Phosphatase (40-150) U/L C-Reactive Protein (0.5-1.0) mg/dL Total Protein (6.0-8.3) g/dL Albumin (3.3-5.0) g/dL SARS-CoV-2 (PCR) Negative SARS-CoV-2 (Negative) Influenza Type A (PCR) Negative PCR FLU A (Negative) Influenza Type B (PCR) Negative PCR FLU B (Negative) Blood Type Antibody Screen Discharge Plan Discharge Clinical Impression: Colitis, Dysentery Patient Disposition: Home, Self-Care Condition: Improved Instructions: Colitis (ED) Additional Instructions: Levaquin as prescribed. Follow-up with primary care in the next week for recheck, repeat chest x-ray in a couple of weeks to confirm resolution of pneumonia radiographically. If you have worsening abdominal pain, worsening bloody stools, vomiting, fever or other worsening, return to the emergency department. If diarrhea continues, you should have stool testing. Prescriptions: New levofloxacin 500 mg tablet 500 mg PO DAILY Qty: 5 0RF No Action calcium carbonate 500 mg calcium (1,250 mg) tablet 500 mg PO DAILY Follow Up/Referrals: Amari Torres MD [Primary Care Provider] - Stand Alone Forms: [facility] Info Instructions
[2022-07-16] MEDS: 0.9 % SODIUM CHLORIDE 1000 ml 1,000 ML IV (07:34)
[2022-07-16 07:42] LABS: Basophils Absolute Auto 0.05 K/uL (0.00-0.30); Basophils Percent Auto 0.5 % (0.0-3.0); Eosinophils Percent Auto 0.9 % (0.0-7.0); Hematocrit 41.6 % (33.0-51.0); Immature Granulocytes Abs Auto 0.02 K/uL (0.00-0.30); Immature Granulocytes Pct Auto 0.2 %; Lymphocytes Percent Auto 15.6 % (20-44); Mean Corpuscular HGB Conc 34 gm/dL (32-36); Mean Corpuscular Hemoglobin 31 pg (26-34); Mean Corpuscular Volume 93 fL (80-100); Monocytes Percent Auto 5.9 % (0.0-11.0); Neutrophils Percent Auto 76.9 % (42.0-72.0); Platelet Count* 227 K/uL (140-440); RDW Coefficient of Variation % 13.6 % (11.5-15.5); Red Blood Count 4.49 m/uL (4.00-5.20); White Blood Count* 10.57 K/uL (4.50-11.00)
[2022-07-16 07:48] LABS: Slide Review Reflex No
[2022-07-16 07:55] LABS: Albumin* 4.1 g/dL (3.3-5.0); Chloride* 107 mmol/L (96-114); Sodium* 139 mmol/L (135-149)
[2022-07-16 07:58] LABS: Bilirubin Direct* 0.1 mg/dL (0.0-0.5); Bilirubin Total* 0.9 mg/dL (0.1-1.5); Carbon Dioxide* 24 mmol/L (20-32); Creatinine* 0.8 mg/dL (0.5-1.5); Est. Creatinine Clearance* 46.54; Estimated Glomerular Filt Rate 76 ml/min; Potassium* 3.5 mmol/L (3.6-5.1); Total Protein* 6.9 g/dL (6.0-8.3)
[2022-07-16 07:59] LABS: Alanine Aminotransferase* 22 U/L (4-35); Alkaline Phosphatase* 71 U/L (40-150); Aspartate Amino Transferase* 30 U/L (12-35); Blood Urea Nitrogen* 15 mg/dL (7-30); Calcium* 9.1 mg/dL (8.4-10.6); Glucose* 122 mg/dL (60-115)
[2022-07-16 08:03] LABS: C Reactive Protein* < 0.5 mg/dL (0.5-1.0)
--- NOTE | 2022-07-16 08:05 | CRLHL7_ITS ---
For Patients: As a result of the Cures Act, medical imaging exams and procedure reports are released immediately into your electronic medical record. You may view this report before your referring provider. If you have questions, please contact your health care provider. INDICATION: RECTAL BLEEDING, LOWER ABDOMEN PAIN AND CRAMPING HX OF PNEUMONIA ONE GIGI AGO TECHNIQUE: CT abdomen and pelvis with 100 cc Omnipaque IV contrast. COMPARISON: None. FINDINGS: The liver is normal in size, shape and attenuation. Gallbladder and biliary tree are normal. The spleen, adrenal glands and pancreas are within normal limits. The kidneys are unremarkable. No evidence of hydronephrosis. The bladder is unremarkable. No evidence of bowel obstruction. Colonic wall thickening and inflammation extending from the splenic flexure to the level of the descending colon/splenic junction. No evidence of bowel obstruction. No significant free fluid and no free air. Pelvic organs are unremarkable. Nodular patchy consolidations within the periphery of the right lower lobe and to lesser extent the dependent portion of the left lower lobe which given differences in technique appears similar to x-ray from June 16, 2022. IMPRESSION: Colonic wall thickening and inflammation extending from the splenic flexure to the level of the descending colon/splenic junction. Findings concerning for nonspecific infectious/inflammatory colitis. Ischemic colitis is not excluded but there is no evidence of pneumatosis or portal venous gas. Nodular patchy consolidations within the periphery of the right lower lobe and to lesser extent the dependent portion of the left lower lobe which given differences in technique appears similar to x-ray from June 16, 2022. 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 Please note that all CT scans at this facility use dose modulation, iterative reconstruction, and/or weight-based dosing when appropriate to reduce radiation dose to as low as reasonably achievable. Dictated by Napoleon Zimmerman MD @ 07/16/2022 9:18:28 AM (Electronically Signed)
[2022-07-16 09:00] LABS: PCR FLU A Negative PCR FLU A (Negative); PCR FLU B Negative PCR FLU B (Negative)
[2022-07-16 09:02] LABS: SARS PCR* Negative SARS-CoV-2 (Negative)
== END 2022-07-16 10:22 | disposition home or self-care (01) ==
PROVIDERS: Family Medicine; Emergency Provider Emergency Medicine; PCP Internal Medicine
DX: A09 Infectious gastroenteritis and colitis, unspecified (principal)
CPT/HCPCS: 36415; 74177; 80048; 80076; 85025; 86140; 86850; 86900; 86901; 87631; 94761; 96360; 96361; 99284; J7030; Q9967

== ENCOUNTER 2023-11-05 10:20 | Outpatient (CLI) | payer MEDICARE, SELFPAY ==
--- OUTSIDE RECORDS SUMMARY | 2023-11-05 10:23 | XMS_ITS | Referral Summary ---
Author Name Unknown Organization [facility] Address [address] [place] [address] Care Team Providers Care Sales Enablement Lead Name Role Phone Amari Torres MD Unavailable Amari Torres MD Primary Care Provider Social History Tobacco Use Types Packs/Day Years Used Date Smoking Tobacco: Never Assessed Adolescent Education Answer Date Record ed Getting School Help Needed Not on file 04/05 Sex and Gender Information Value Date Recorded Sex Assigned at Female 04/25/2022 3:34 PM CDT Gender Identity Female 04/25/2022 3:34 PM CDT Sexual Orientation Not on file Plan of Treatment Not on file Procedures Procedure Name Priority Date/Time Associated Diagnosis Comments MA SCREENING BILATERAL W/ LUIS Routine 05/23/2023 11:20 AM CHLORINATION OPERATOR Visit for screening mammogram from Last 3 Months or Most Recently Relevant to Health Maintenance Results * MA Screen Bilateral w/Luis (05/23/2023 11:20 AM CHLORINATION OPERATOR) Anatomical Region Laterality Modality Breast Bilateral Mammography Impressions 05/23/2023 1:03 PM CHLORINATION OPERATOR IMPRESSION: ACR BI-RADS Category 1: Negative RECOMMENDED FOLLOW-UP: Annual routine screening mammogram The results and recommendations of this examination will be communicated to the patient. Nae Colunga MD Narrative 05/23/2023 1:03 PM CHLORINATION OPERATOR BILATERAL FULL FIELD DIGITAL SCREENING MAMMOGRAM WITH TOMOSYNTHESIS Performed on: 05/23/23 Compared to: 05/15/2022, 05/08/2021, 04/12/2020, and 04/03/2019 Technique: ??This study was evaluated with the assistance of Computer-Aided Detection. ??Breast Tomosynthesis was used in interpretation. Findings: The breasts have scattered areas of fibroglandular density. ?? There is no radiographic evidence of malignancy. Amari Torres MD IMG MAMMOGRAPH Y ORDERABLES from Last 3 Months or Most Recently Relevant to Health Maintenance Care Teams Sales Enablement Lead Relationship Specialty Start Date End Date Amari Torres MD [facility] [address] [place] [address] PCP - General Emergency Medicine 04/17/21 Amari Torres MD [facility] [address] [place] [address] Internal Medicine 01/12/15
--- OUTSIDE RECORDS SUMMARY | 2023-11-05 10:23 | XMS_ITS | Clinical Summary ---
Author Name Unknown Organization [facility] Address [place], [place] [address] Care Team Providers Care Cath Lab Tech Name Role Phone Amari Torres MD Primary Care Provider Allergies Active Allergy Reactions Criticality Noted Date Comments Cephalexin Rash Medium 01/10/2022 Medications No known medications Social History Tobacco Use Types Packs/Day Years Used Date Smoking Tobacco: Never Assessed Sex and Gender Information Value Date Recorded Sex Assigned at Not on file Gender Identity Not on file Sexual Orientation Not on file Last Filed Vital Signs [...] (shingles) series for age 50+ (1 of 2) 02/22/1996 DEXA/DXA scan for age 65+ 2011 Medicare Wellness for age 65+ 2011 Pneumococcal series for age 65+ (1 of 1 - PCV) 2011 COVID-19 vaccine series (3 - 2022- season) 2023 11/04/2021, 04/07/2021 Influenza for age 65+ 03/15/2024 Care Teams Cath Lab Tech Relationship Specialty Start Date End Date Amari Torres MD [address] [place] [address] PCP - General Internal Medicine 01/10/22
--- OUTSIDE RECORDS SUMMARY | 2023-11-05 10:23 | XMS_ITS | Clinical Summary ---
Author Name Unknown Organization [facility] Address [address] [place] [id number] Care Team Providers Care Author'S Agent Name Role Phone Amari Torres MD Unavailable [...] Orientation Not on file Plan of Treatment Health Maintenance Due Date Last Done Comments ADVANCE CARE PLANNING 1945 ANNUAL REVIEW OF HM ORDERS 1945 DEXA 1945 GLUCOSE 1946 HEPATITIS C SCREENING 02/22/1964 LIPID 1986 RSV VACCINE ( & 60+) (1 - 1-dose 60+ series) 2006 FALL RISK ASSESSMENT 2011 MEDICARE ANNUAL WELLNESS VISIT 2011 Pneumococcal Vaccine: 65+ Years (2 of 2 - PCV) 02/15/2015 02/15/2014 PHQ-2 (once per calendar year) 2023 COVID-19 Vaccine (5 - 2022- season) 2023 04/18/2023, 03/30/2022, 11/04/2021, Additional history exists DTAP/TDAP/TD IMMUNIZATION (2 - Td or Tdap) 02/16/2024 02/15/2014 ZOSTER IMMUNIZATION Completed 10/19/2021, INFLUENZA VACCINE Completed 04/18/2023, , 04/15/2021, Additional history exists MAMMO SCREENING Discontinued 05/23/2023, 07/2021, 05/08/2021, Additional history exists HPV IMMUNIZATION Aged Out No longer e ligible based on patient's age to complete this topic IPV IMMUNIZATION Aged Out No longer e ligible based on patient's age to complete this topic MENINGITIS IMMUNIZATION Aged Out No l onger eligible based on patient's age to complete this topic RSV MONOCLONAL ANTIBODY Aged Out No l onger eligible based on patient's age to complete this topic Procedures Procedure Name Priority Date/Time Associated Diagnosis Comments MA SCREENING BILATERAL W/ LUIS Routine 05/23/2023 11:20 AM SUPERVISOR COFFEE Visit for screening mammogram from Last 3 Months or Most Recently Relevant to Health Maintenance Results * MA Screen Bilateral w/Luis (05/23/2023 11:20 AM SUPERVISOR COFFEE) Anatomical Region Laterality Modality Breast Bilateral Mammography Impressions 05/23/2023 1:03 PM SUPERVISOR COFFEE IMPRESSION: ACR BI-RADS Category 1: Negative RECOMMENDED FOLLOW-UP: Annual routine screening mammogram The results and recommendations of this examination will be communicated to the patient. Nae Colunga MD Narrative 05/23/2023 1:03 PM SUPERVISOR COFFEE BILATERAL FULL FIELD DIGITAL SCREENING MAMMOGRAM WITH [...] Recently Relevant to Health Maintenance Care Teams Author'S Agent Relationship Specialty Start Date End Date Amari Torres MD [facility] [address] [place] [address] PCP - General Emergency Medicine 04/17/21 Amari Torres MD [facility] [address] [place] [address] Internal Medicine 01/12/15
== END 2023-11-05 10:21 | disposition home or self-care (01) ==
PROVIDERS: PCP Internal Medicine; Visit Provider Internal Medicine
DX: E78.2 Mixed hyperlipidemia (principal)
CPT/HCPCS: 80053; 80061

== ENCOUNTER 2023-11-12 07:16 | Outpatient (CLI) | payer MEDICARE, SELFPAY ==
--- OUTSIDE RECORDS SUMMARY | 2023-11-12 07:19 | XMS_ITS | Referral Summary ---
Author Name Unknown Organization [facility] Address [address] [place] [address] Care Team Providers Care Funeral Home Makeup Artist Name Role Phone Amari Torres MD Unavailable [...] BILATERAL W/ LUIS Routine 05/23/2023 11:20 AM THERAPIST RRT Visit for screening mammogram from Last 3 Months or Most Recently Relevant to Health Maintenance Results * MA Screen Bilateral w/Luis (05/23/2023 11:20 AM THERAPIST RRT) Anatomical Region Laterality Modality Breast Bilateral Mammography Impressions 05/23/2023 1:03 PM THERAPIST RRT IMPRESSION: ACR BI-RADS Category 1: Negative RECOMMENDED FOLLOW-UP: Annual routine screening mammogram The results and recommendations of this examination will be communicated to the patient. Nae Colunga MD Narrative 05/23/2023 1:03 PM THERAPIST RRT BILATERAL FULL FIELD DIGITAL SCREENING MAMMOGRAM WITH [...] Recently Relevant to Health Maintenance Care Teams Funeral Home Makeup Artist Relationship Specialty Start Date End Date Amari Torres MD [facility] [address] [place] [address] PCP - General Emergency Medicine 04/17/21 Amari Torres MD [facility] [address] [place] [address] Internal Medicine 01/12/15
--- OUTSIDE RECORDS SUMMARY | 2023-11-12 07:19 | XMS_ITS | Clinical Summary ---
Author Name Unknown Organization [facility] Address [place], [place] [address] Care Team Providers Care Infrastructure Analyst Name Role Phone Amari Torres MD Primary [...] Influenza for age 65+ 03/15/2024 Care Teams Infrastructure Analyst Relationship Specialty Start Date End Date Amari Torers MD [address] [place] [address] PCP - General Internal Medicine 01/10/22
--- OUTSIDE RECORDS SUMMARY | 2023-11-12 07:19 | XMS_ITS | Clinical Summary ---
Author Name Unknown Organization [place] Address [address] [place] [id number] Care Team Providers Care Manager Assisted Living Name Role Phone Amari Torres MD Unavailable [...] (once per calendar year) 2023 COVID-19 Vaccine ( - 2022- season) 2023 04/18/2023, 03/30/2022, 11/04/2021, [...] BILATERAL W/ LUIS Routine 05/23/2023 11:20 AM SUPPLY CHAIN SYSTEMS MANAGER Visit for screening mammogram from Last 3 Months or Most Recently Relevant to Health Maintenance Results * MA Screen Bilateral w/Luis (05/23/2023 11:20 AM SUPPLY CHAIN SYSTEMS MANAGER) Anatomical Region Laterality Modality Breast Bilateral Mammography Impressions 05/23/2023 1:03 PM SUPPLY CHAIN SYSTEMS MANAGER IMPRESSION: ACR BI-RADS Category 1: Negative RECOMMENDED FOLLOW-UP: Annual routine screening mammogram The results and recommendations of this examination will be communicated to the patient. Nae Colunga MD Narrative 05/23/2023 1:03 PM SUPPLY CHAIN SYSTEMS MANAGER BILATERAL FULL FIELD DIGITAL SCREENING MAMMOGRAM WITH [...] Recently Relevant to Health Maintenance Care Teams Manager Assisted Living Relationship Specialty Start Date End Date Amari Torres MD [facility] [address] [place] [address] PCP - General Emergency Medicine 04/17/21 Amari Torres MD [facility] [address] [place] [address] Internal Medicine 01/12/15
--- NOTE | 2023-11-12 08:37 | W.ANESCHARGE ---
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
--- NOTE | 2023-11-12 09:15 | FL_ITS ---
Patient: DAMARIS PETERS Facility:?[facility] Patient ID:?[id number] Site Patient ID:?[id number]. Site :?[id number] Study:?XRay-Abdomen/Pelvis Procedure Barium Enema w/air-11/12/2023 11:08:30 AM Ordering Physician:?Norma Doyle Final Report: Technique: Double contrast barium enema performed in routine fashion. Fluoroscopic time 3.24 minutes. Indication: Incomplete colonoscopy, colitis Comparison: CT 07/16/2022 Findings: A few scattered colonic diverticula noted. No wall thickening. The haustra are normal. No filling defect. No stricture or mass. No obstruction. Normal appendix. Mild reflux into the distal small bowel. Impression: Mild colonic diverticulosis. No inflammatory changes or suspicious mass. Dictated by Gomez Louie MD @ 11/12/2023 12:47:50 PM Signed by:?Gomez Louie MD @11/12/2023 12:47:50 PM (Electronic Signature)
--- NOTE | 2023-11-12 11:33 | W.ANESCHARGE ---
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
== END 2023-11-12 07:17 | disposition home or self-care (01) ==
PROVIDERS: PCP Internal Medicine; Visit Provider Surgery
DX: K64.4 Residual hemorrhoidal skin tags (principal); K64.8 Other hemorrhoids
CPT/HCPCS: 00812; 74280; 99100; J2704

== ENCOUNTER 2023-12-26 13:46 | Outpatient (CLI) | payer MEDICARE, SELFPAY ==
--- OUTSIDE RECORDS SUMMARY | 2023-11-27 15:19 | XMS_ITS | Clinical Summary ---
Author Name Unknown Organization [place] Address [address] [place] [address] Care Team Providers Care Life Enrichment Director Name Role Phone Amari Torres MD Unavailable [...] BILATERAL W/ LUIS Routine 05/23/2023 11:20 AM SCHOOL SUPERINTENDENT Visit for screening mammogram from Last 3 Months or Most Recently Relevant to Health Maintenance Results * MA Screen Bilateral w/Luis (05/23/2023 11:20 AM SCHOOL SUPERINTENDENT) Anatomical Region Laterality Modality Breast Bilateral Mammography Impressions 05/23/2023 1:03 PM SCHOOL SUPERINTENDENT IMPRESSION: ACR BI-RADS Category 1: Negative RECOMMENDED FOLLOW-UP: Annual routine screening mammogram The results and recommendations of this examination will be communicated to the patient. Nae Colunga MD Narrative 05/23/2023 1:03 PM SCHOOL SUPERINTENDENT BILATERAL FULL FIELD DIGITAL SCREENING MAMMOGRAM WITH [...] Recently Relevant to Health Maintenance Care Teams Life Enrichment Director Relationship Specialty Start Date End Date Amari Torres MD [facility] [address] [place] [address] PCP - General Emergency Medicine 04/17/21 Amari Torres MD [facility] [address] [place] [address] Internal Medicine 01/12/15
--- OUTSIDE RECORDS SUMMARY | 2023-11-27 15:19 | XMS_ITS | Referral Summary ---
Author Name Unknown Organization [place] Address [address] [place] [address] Care Team Providers Care Trailers And Motor Homes Salesperson Name Role Phone Amari Torres MD Unavailable [phone] Amari Torres MD Primary Care Provider Social [...] BILATERAL W/ LUIS Routine 05/23/2023 11:20 AM PEDIATRIC PSYCHIATRIST Visit for screening mammogram from Last 3 Months or Most Recently Relevant to Health Maintenance Results * MA Screen Bilateral w/Luis (05/23/2023 11:20 AM PEDIATRIC PSYCHIATRIST) Anatomical Region Laterality Modality Breast Bilateral Mammography Impressions 05/23/2023 1:03 PM PEDIATRIC PSYCHIATRIST IMPRESSION: ACR BI-RADS Category 1: Negative RECOMMENDED FOLLOW-UP: Annual routine screening mammogram The results and recommendations of this examination will be communicated to the patient. Nae Colunga MD Narrative 05/23/2023 1:03 PM PEDIATRIC PSYCHIATRIST BILATERAL FULL FIELD DIGITAL SCREENING MAMMOGRAM WITH [...] Recently Relevant to Health Maintenance Care Teams Trailers And Motor [employer] Salesperson Relationship Specialty Start Date End Date Amari Torres MD [facility] [address] [place] [address] PCP - General Emergency Medicine 04/17/21 Amari Torres MD [facility] [address] [place] [address] Internal Medicine 01/12/15
--- OUTSIDE RECORDS SUMMARY | 2023-11-27 15:19 | XMS_ITS | Clinical Summary ---
Author Name Unknown Organization [facility] Address [place], [place] [address] Care Team Providers Care Is Manager Name Role Phone Amari Torres MD Primary [...] Influenza for age 65+ 03/15/2024 Care Teams Is Manager Relationship Specialty Start Date End Date Amari Torres MD [address] [place] [address] PCP - General Internal Medicine 01/10/22
--- OUTSIDE RECORDS SUMMARY | 2023-12-26 13:50 | XMS_ITS | Clinical Summary ---
Author Organization [place] Address [address] [place] [address] Care Team Providers Care Investment Strategist Name Role Phone Amari Torres MD Unavailable [phone] Amari Torres MD Primary Care Provider Social [...] BILATERAL W/ LUIS Routine 05/23/2023 11:20 AM WIRER PASSENGER CAR Visit for screening mammogram from Last 3 Months or Most Recently Relevant to Health Maintenance Results * MA Screen Bilateral w/Luis (05/23/2023 11:20 AM WIRER PASSENGER CAR) Anatomical Region Laterality Modality Breast Bilateral Mammography Impressions 05/23/2023 1:03 PM WIRER PASSENGER CAR IMPRESSION: ACR BI-RADS Category 1: Negative RECOMMENDED FOLLOW-UP: Annual routine screening mammogram The results and recommendations of this examination will be communicated to the patient. Nae Colunga MD Narrative 05/23/2023 1:03 PM WIRER PASSENGER CAR BILATERAL FULL FIELD DIGITAL SCREENING MAMMOGRAM WITH [...] Recently Relevant to Health Maintenance Care Teams Investment Strategist Relationship Specialty Start Date End Date Amari Torres MD [facility] [address] [place] [address] PCP - General Emergency Medicine 04/17/21 Amari Torres MD [facility] [address] [place] [address] Internal Medicine 01/12/15
--- OUTSIDE RECORDS SUMMARY | 2023-12-26 13:50 | XMS_ITS | Clinical Summary ---
Author Organization [facility] Address [place], [place] [address] Care Team Providers Care Hogshead Weigher Name Role Phone Amari Torres MD Primary [...] 1 - PCV) 2011 COVID-19 vaccine series ( - season) 2023 11/04/2021, 04/07/2021 Influenza for age 65+ 03/15/2024 Care Teams Hogshead Weigher Relationship Specialty Start Date End Date Amari Torres MD [address] [place] [address] PCP - General Internal Medicine 01/10/22
--- OUTSIDE RECORDS SUMMARY | 2023-12-26 13:50 | XMS_ITS | Referral Summary ---
Author Organization [facility] Address [address] [place] [address]. [place] [address] Care Team Providers Care Environmental Services Worker Name Role Phone Amari Torres MD Unavailable [phone] Amari Torres MD Primary Care Provider Social [...] BILATERAL W/ LUIS Routine 05/23/2023 11:20 AM MANAGER MALL Visit for screening mammogram from Last 3 Months or Most Recently Relevant to Health Maintenance Results * MA Screen Bilateral w/Luis (05/23/2023 11:20 AM MANAGER MALL) Anatomical Region Laterality Modality Breast Bilateral Mammography Impressions 05/23/2023 1:03 PM MANAGER MALL IMPRESSION: ACR BI-RADS Category 1: Negative RECOMMENDED FOLLOW-UP: Annual routine screening mammogram The results and recommendations of this examination will be communicated to the patient. Nae Colunga MD Narrative 05/23/2023 1:03 PM MANAGER MALL BILATERAL FULL FIELD DIGITAL SCREENING MAMMOGRAM WITH [...] Recently Relevant to Health Maintenance Care Teams Environmental Services Worker Relationship Specialty Start Date End Date Amari Torres MD [facility] [address] [place] [address] PCP - General Emergency Medicine 04/17/21 Amari Torres MD [facility] [address] [place] [address] Internal Medicine 01/12/15
--- NOTE | 2023-12-26 14:00 | CRLHL7_ITS ---
For Patients: As a result of the Century Cures Act, medical imaging exams and procedure reports are released immediately into your electronic medical record. You may view this report before your referring provider. If you have questions, please contact your health care provider. DXA BONE MINERAL DENSITY STUDY Reason for exam: Osteopenia. Current height (in): 66. Weight (lb): 140. Menopause age: 53. Ethnicity: White. 1. Have you had a previous hip or vertebral fracture? No. 2. Have you had any fractures during your adult life which did not result from significant trauma (e.g., auto accident)? No. 3. Did either of your parents have a hip fracture? No. 4. Do you smoke? No. 5. Have you ever taken Glucocorticoids? No. 6. Do you have rheumatoid arthritis? No. 7. Do you have secondary osteoporosis? No. 8. Do you drink 3 or more alcoholic drinks per day? No. 9. Are you being treated for osteoporosis? No. 10. Have you ever taken any of the following medications: Actonel, Evista, Fosamax, Miacalcin, Reclast, Boniva, Forteo, HRT (i.e. estrogen/hormone therapy), Protelos, Prolia, Vitamin D, Calcium, other ??? please specify. ANSWER: Yes, Evista, Fosamax, vitamin D, HRT (estrogen hormone therapy), calcium. 11. Do you have any of the following medical conditions: Anorexia or bulimia, asthma or emphysema, end stage renal disease, hyperparathyroidism, any seizure disorders, cancer, inflammatory bowel diseases, hysterectomy, other ??? please specify. ANSWER: No. 12. What was your maximum height (inches)? 67. 13. Do you perform weight bearing exercise regularly? No. 14. Do you regularly consume dairy products? Yes. 15. Do you drink caffeinated beverages? Yes. 16. At what age did your period start? 14. 17. Are you premenopausal? No. 18. How many full term pregnancies have you had? 2. 19. Have you ever missed your period for more than 6 months in a row (not including or menopause)? No. TECHNIQUE: Bone mineral density study was performed using the [employer]. FINDINGS: The results of the study expressed as bone mineral density (BMD) are as follows: Lumbar spine L1 to L4: BMD: 0.762 g/cm2. T-score: -2.6. Z-score: 0.0. Neck Left: BMD: 0.563 g/cm2. T-score: -2.6. Z-score: -0.4. Right: BMD: 0.591 g/cm2. T-score: -2.3. Z-score: -0.1. Total Left: BMD: 0.691 g/cm2. T-score: -2.1. Z-score: -0.1. Right: BMD: 0.777 g/cm2. T-score: -1.4. Z-score: 0.6. IMPRESSION: Osteoporosis. DANNY MILLAN M.D. [email or web address] be/Dictated by: Danny Millan MD @ 12/27/2023 4:04:00 PM (Electronically Signed)
== END 2023-12-26 13:47 | disposition home or self-care (01) ==
LOC: RAD 13:47
PROVIDERS: PCP Internal Medicine; Visit Provider Internal Medicine
DX: M85.80 Other specified disorders of bone density and structure, unspecified site (principal); M81.0 Age-related osteoporosis without current pathological fracture
CPT/HCPCS: 77080

== ENCOUNTER 2024-12-16 13:05 | Outpatient (CLI) | payer MEDICARE, SELFPAY | END 2024-12-16 13:06 | disposition home or self-care (01) | PROVIDERS: PCP Internal Medicine; Visit Provider Internal Medicine | DX: E78.5 Hyperlipidemia, unspecified (principal); M81.0 Age-related osteoporosis without current pathological fracture | CPT/HCPCS: 80053; 80061 ==